=== PATIENT | male | born 1975 | race African-American/Black ===

== ENCOUNTER 2020-10-13 11:54 | Emergency (ER) | payer MEDICARE, MEDICAID, SELFPAY ==
--- NOTE | ~2020-10-13 | XR_ITS ---
EXAMINATION: XR CHEST CLINICAL INFORMATION: Shortness of breath. COMPARISON: 01/07/2020 chest radiograph. TECHNIQUE: Frontal view of the chest was obtained. FINDINGS: No significant abnormality is noted involving the heart, lungs, mediastinum, bony thorax or soft tissues. XR/XR chest 1V IMPRESSION: No acute cardiopulmonary process.
[2020-10-13 12:21] VITALS: BP 114/77; PULSE 63; RESP 18; TEMP 36.7; O2SAT 99; BMI 22.4
--- NOTE | 2020-10-13 12:50 | ECG_ITS ---
Test Reason : CHEST WALL PAIN Blood Pressure : / mmHG Vent. Rate : 054 BPM Atrial Rate : 054 BPM P-R Int : 122 ms QRS Dur : 098 ms QT Int : 428 ms P-R-T Axes : 010 054 040 degrees QTc Int : 405 ms Sinus bradycardia Incomplete right bundle branch block Borderline ECG When compared with ECG of 07-JAN-2020 12:16, No significant change was found Referred By: Candis Owen Electronically Signed By:OLIVERIO MARTINEZ
--- NOTE | 2020-10-13 12:59 | ED.ASTHMA ---
HPI - Asthma General Chief Complaint: Asthma Stated Complaint: DIFF BREATHING ASTHMA Time Seen by Provider: 10/13/20 12:49 Source: patient Mode of arrival: ambulatory History of Present Illness HPI Narrative: 45-year-old male a past medical history of asthma presenting to the ED complaining of SOB, chest tightness, productive cough x a couple days. Reports right-sided chest wall pain worse on palpation. Denies fever, chills, recent travel, [place] edema, history of blood clots, sick contacts, COVID-19 exposure. Denies having inhalers at home, denies having PCP MD complaint: asthma attack Related Data Previous Rx's Medication Instructions Recorded albuterol sulfate 2 puff INHALATION Q4-6H PRN #6.7 g 10/13/20 prednisone 40 mg PO DAILY 5 Days #10 tab 10/13/20 Allergies Allergy/AdvReac Type Severity Reaction Status Date / Time No Known Allergies Allergy Verified 10/13/20 12:25 Review of Systems Review of Systems: Constitutional: No Fever, No Chills, No Fatigue, No Malaise Cardiovascular: + Chest Pain, + SOB, No Dyspnea on Exertion, No Orthopnea, No Edema, No Palpitations Respiratory: + Cough, + Sputum, + Wheezing Gastrointestinal: No Nausea, No Vomiting, No Abdominal pain Musculoskeletal: No joint pain, No Myalgias Skin: No Skin Lesions, No rash Neuro: No Weakness, No Numbness, No Headache Yes all other systems are reviewed and are negative [facility] Past Medical History Attestation statement: The following information was validated with the patient. Medical History (Updated 10/13/20 @ 15:01 by BIMAL Hernandez) Asthma Social History Social History Advance Directives: No Advance Directives Information Provided: Yes Physical Exam Vital Signs: Vital Signs: Last Vital Signs Temp 98.0 F 10/13/20 14:28 Pulse 55 10/13/20 14:28 Resp 19 10/13/20 14:28 BP 115/73 10/13/20 14:28 Pulse Ox 99 10/13/20 14:28 Body Mass Index 22.4 Const: General: cooperative, healthy appearing and no acute distress Orientation/consciousness: patient oriented x3 Limitations: no limitations HENMT: Head: Yes normal to inspection Ears: hearing grossly normal bilaterally General nose exam: Normal external nose present Face and sinus: Yes normal facial exam Eyes: General: appearance normal, both eyes and all related structures EOM: EOMs intact bilaterally Neck: Neck: Yes normal visual inspection and Yes no meningeal signs Chest: Chest palpation & inspection: no crepitus and tenderness (right anterior chest wall) Resp: Effort & Inspection: normal respiratory effort Auscultation: wheezes expiratory wheezes and throughout Cardio: Rate: regular rate Heart sounds: S1 normal heart sound present and S2 normal heart sound present GI: Inspection: Yes normal to inspection Skin: Rashes: no rashes Wounds: no wounds Neuro: General: patient oriented x3 and no meningeal signs Extrem: General: Yes normal to inspection, Yes no pedal edema and Yes no calf tenderness Course Course Course Narrative: -no leukocytosis, troponin negative, labs otherwise unremarkable XR chest 1V IMPRESSION: No acute cardiopulmonary process. -D-dimer negative, COVID-19/influenza/RSV negative. On re-evaluation patient's lungs CTA, reports symptomatic improvement. Feels safe for discharge home MDM - Asthma MDM Narrative Medical decision making narrative: 45-year-old male a past medical history of asthma presenting to the ED complaining of SOB, chest tightness, productive cough x a couple days. On exam VSS, NAD, well appearing, physical exam as above, diffuse expiatory wheezing, right chest wall with reproducible tenderness. Concern for asthma exacerbation vs pneumonia vs PE. Rule out COVID-19. Plan: EKG, labs, CXR, COVID-19 testing, DuoNeb, Solu-Medrol, magnesium, reassess Lab Data Result diagrams: 10/13/20 13:14 10/13/20 13:14 Labs: Lab Results 10/13/20 10/13/20 10/13/20 Range/Units 13:14 13:14 13:14 WBC 9.2 (4.8-10.8) X10*3/uL RBC 4.86 (4.60-5.80) X10*6/uL Hgb 14.3 (14.0-18.0) g/dl Hct 42.7 (42-52) % MCV 87.9 (80-98) fL MCH 29.4 (27.0-33.0) pg MCHC 33.5 (31.0-36.0) g/dl RDW 14.8 (11.0-16.0) % Plt Count 250 (160-400) X10*3/uL MPV 9.7 (9.4-12.4) fL Immature Gran % (Auto) 0.4 (0.0-0.4) % Neut % (Auto) 60.4 (45-73) % Lymph % (Auto) 28.9 (20-40) % [place] % (Auto) 6.7 (2-11) % Eos % (Auto) 3.4 (0-4) % Baso % (Auto) 0.2 (0-2) % Lymph # (Auto) 2.7 (1.2-4.9) X10*3/uL [place] # (Auto) 0.6 (0.1-1.2) X10*3/uL Eos # (Auto) 0.3 (0.0-0.4) X10*3/uL Baso # (Auto) 0.0 (0.0-0.2) X10*3/uL Abs Immat Gran (auto) 0.04 H (0.00-0.03) X10*3/uL Absolute Neuts (auto) 5.6 (2.0-8.3) X10*3/uL Absolute Nucleated RBC 0.000 (0.0-0.012) X10*3/uL Nucleated RBC % (auto) 0.0 (0.0-0.2) /100WBC D-Dimer NG/ML Sodium 139 (135-145) mmol/L Potassium 4.3 (3.3-5.1) mmol/L Chloride 108 (96-108) mmol/L Carbon Dioxide 23 (22-29) mmol/L Anion Gap 12 (12-20) BUN 11 (9-16) mg/dL Creatinine 1.06 (0.5-1.4) mg/dL Estim Creat Clear Calc 94.1 Estimated GFR > 60 Random Glucose 92 (60-115) mg/dL Calcium 9.4 (8.4-10.2) mg/dL Troponin I High Sens < 3.5 (<3.5-35.0) ng/L Coronavirus (PCR) (Negative) Influenza Type A (PCR) (Negative) Influenza Type B (PCR) (Negative) RSV RNA Qual (PCR) (Negative) 10/13/20 10/13/20 Range/Units 13:17 13:53 WBC (4.8-10.8) X10*3/uL RBC (4.60-5.80) X10*6/uL Hgb (14.0-18.0) g/dl Hct (42-52) % MCV (80-98) fL MCH (27.0-33.0) pg MCHC (31.0-36.0) g/dl RDW (11.0-16.0) % Plt Count (160-400) X10*3/uL MPV (9.4-12.4) fL Immature Gran % (Auto) (0.0-0.4) % Neut % (Auto) (45-73) % Lymph % (Auto) (20-40) % [place] % (Auto) (2-11) % Eos % (Auto) (0-4) % Baso % (Auto) (0-2) % Lymph # (Auto) (1.2-4.9) X10*3/uL [place] # (Auto) (0.1-1.2) X10*3/uL Eos # (Auto) (0.0-0.4) X10*3/uL Baso # (Auto) (0.0-0.2) X10*3/uL Abs Immat Gran (auto) (0.00-0.03) X10*3/uL Absolute Neuts (auto) (2.0-8.3) X10*3/uL Absolute Nucleated RBC (0.0-0.012) X10*3/uL Nucleated RBC % (auto) (0.0-0.2) /100WBC D-Dimer < 200 NG/ML Sodium (135-145) mmol/L Potassium (3.3-5.1) mmol/L Chloride (96-108) mmol/L Carbon Dioxide (22-29) mmol/L Anion Gap (12-20) BUN (9-16) mg/dL Creatinine (0.5-1.4) mg/dL Estim Creat Clear Calc Estimated GFR Random Glucose (60-115) mg/dL Calcium (8.4-10.2) mg/dL Troponin I High Sens (<3.5-35.0) ng/L Coronavirus (PCR) NEGATIVE (Negative) Influenza Type A (PCR) NEGATIVE (Negative) Influenza Type B (PCR) NEGATIVE (Negative) RSV RNA Qual (PCR) NEGATIVE (Negative) Discharge Plan Discharge Clinical Impression: Asthma with acute exacerbation Patient Disposition: Home, Self-Care Instructions: Asthma (ED) Additional Instructions: Your blood work and chest x-ray were reassuring today in the ED You were negative for COVID-19, the flu, and RSV Your are having an asthma exacerbation, use albuterol inhaler at home, in addition prednisone as a steroid, take as prescribed You need to establish care with a primary care doctor If her symptoms persist or worsen have constant worsening shortness breath, chest pain, fever, or chills please return to the ED Prescriptions: New albuterol sulfate 90 mcg/actuation HFA aerosol inhaler 2 puff inhalation Q4-6H PRN (Reason: shortness of breath or wheezing) Qty: 6.7 RF: 1 prednisone 20 mg tablet 40 mg PO DAILY 5 Days Qty: 10 RF: 0 Referrals: Fernandez Wolf DO [] - 2 days Shirley Vega MD [Physician] - 2 days Zen Winn MD [Physician] - 2 days Physician,None [Primary Care Provider] - 2 days
[2020-10-13 13:18] VITALS: PULSE 55; O2SAT 99
[2020-10-13] MEDS: Albuterol/Iprat 2.5/0.5MG 3 ML AMPUL.NEB INHALE (13:18)
[2020-10-13 13:22] LABS: Basophils Percent Auto 0.2 % (0-2); Eosinophils Absolute Auto 0.3 X10*3/uL (0.0-0.4); Eosinophils Percent Auto 3.4 % (0-4); Hematocrit 42.7 % (42-52); Hemoglobin 14.3 g/dl (14.0-18.0); Imm Gran Abs Auto 0.04 X10*3/uL (0.00-0.03); Imm Gran Pct Auto 0.4 % (0.0-0.4); Lymphocytes Absolute Auto 2.7 X10*3/uL (1.2-4.9); Lymphocytes Percent Auto 28.9 % (20-40); MANUAL DIFF FLAG NO; Mean Corpuscular HGB Conc 33.5 g/dl (31.0-36.0); Mean Corpuscular Hemoglobin 29.4 pg (27.0-33.0); Mean Corpuscular Volume 87.9 fL (80-98); Mean Platelet Volume 9.7 fL (9.4-12.4); Monocytes Absolute Auto 0.6 X10*3/uL (0.1-1.2); Monocytes Percent Auto 6.7 % (2-11); Neutrophils Absolute Auto 5.6 X10*3/uL (2.0-8.3); Neutrophils Percent Auto 60.4 % (45-73); Platelet Count 250 X10*3/uL (160-400); Red Blood Count 4.86 X10*6/uL (4.60-5.80); Red Cell Distribution Width 14.8 % (11.0-16.0); White Blood Count 9.2 X10*3/uL (4.8-10.8)
[2020-10-13] MEDS: Magnesium Sulfate/H2O 2 GM/50 ML PIGGYBACK IV (13:26)
[2020-10-13] MEDS: methylPREDNISolone Sod Succ 125 MG/2 ML VIAL IVPUSH (13:26)
[2020-10-13 13:44] LABS: Anion Gap 12 (12-20); Blood Urea Nitrogen 11 mg/dL (9-16); Calcium 9.4 mg/dL (8.4-10.2); Carbon Dioxide 23 mmol/L (22-29); Chloride 108 mmol/L (96-108); Creatinine Clr Calc Pharmacy 94.1; Estimated Glomerular Filt Rate > 60; Glucose Random 92 mg/dL (60-115); Potassium 4.3 mmol/L (3.3-5.1); Sodium 139 mmol/L (135-145)
[2020-10-13 13:50] LABS: Troponin-I High Sensitivity < 3.5 ng/L (<3.5-35.0)
[2020-10-13 14:07] LABS: D Dimer < 200 NG/ML
[2020-10-13 14:22] LABS: Influenza A PCR NEGATIVE (Negative); Influenza B PCR NEGATIVE (Negative); Resp Syncy Virus RNA Qual PCR NEGATIVE (Negative); SARS COV2 PCR INHOUSE NEGATIVE (Negative)
[2020-10-13 14:28] VITALS: BP 115/73; PULSE 55; RESP 19; TEMP 36.7; O2SAT 99
== END 2020-10-13 15:11 | disposition home or self-care (01) ==
PROVIDERS: Physician Assistant; Emergency Provider Emergency Medicine Emergency Medical Services
DX: J45.901 Unspecified asthma with (acute) exacerbation (principal); R07.89 Other chest pain; Z20.822 Contact with and (suspected) exposure to COVID-19; Z79.899 Other long term (current) drug therapy
CPT/HCPCS: 0241U; 36415; 71045; 80048; 84484; 85025; 85379; 93005; 94640; 96365; 96374; 99284; J2930; J3475

== ENCOUNTER 2021-05-07 11:46 | Emergency (ER) | payer MEDICARE, MEDICAID, SELFPAY ==
[2021-05-07 12:36] VITALS: BP 106/68; PULSE 75; RESP 18; TEMP 36.8; O2SAT 97; BMI 23.7
[2021-05-07 13:01] LABS: COVID-19 Test Positive (Negative)
--- NOTE | 2021-05-07 14:33 | ED.URI ---
HPI - URI/Sore Throat General Chief Complaint: Upper Respiratory Symptoms Stated Complaint: Upper back pain/Fever Time Seen by Provider: 05/07/21 14:30 Source: patient Mode of arrival: ambulatory Limitations: no limitations History of Present Illness HPI Narrative: jonel x 2 exposed to friend with JULIANO JHAVERI elicited complaint: cough Pertinent past history: other (bronchitis) Onset (ago): day(s) (2) Consistency: constant Severity: mild Able to tolerate fluids by mouth: Yes Exacerbating factors: nothing Relieving factors: nothing Context: sick contacts Associated symptoms: chills, myalgias, headache, nasal congestion and cough Treatments prior to arrival: none Related Data Previous Rx's Medication Instructions Recorded albuterol sulfate 90 mcg/actuation 2 puff INHALATION Q4-6H PRN #6.7 g 10/13/20 aerosol inhaler prednisone 20 mg tablet 40 mg PO DAILY 5 Days #10 tab 10/13/20 prednisone 20 mg tablet 40 mg PO DAILY 5 Days #10 tab 05/07/21 Allergies Allergy/AdvReac Type Severity Reaction Status Date / Time No Known Allergies Allergy Verified 10/13/20 12:25 Review of Systems Review of Systems: Constitutional : no Fever, positive Chills, positive fatigue, positive Malaise ENT/Mouth : nosore throat, positive runny nose Eyes: No Discharge Cardiovascular : No Chest Pain, No SOB Respiratory : No Cough, No Sputum Gastrointestinal : No Nausea, No Vomiting, No Diarrhea Genitourinary : No Dysuria, No Urinary Frequency Musculoskeletal : positive Myalgia Skin : No rash Neuro : pos Headache PMFSH Past Medical History Attestation statement: The following information was validated with the patient. Medical History Asthma Social History Social History (Updated 05/07/21 @ 14:46 by Danna Christianson DO) Patient Tobacco Use Status: Current everyday Tobacco user Advance Directives: No Advance Directives Information Provided: Yes Physical Exam Vital Signs: Vital Signs: Last Vital Signs Temp 98.2 F 05/07/21 12:36 Pulse 75 05/07/21 12:36 Resp 18 05/07/21 12:36 BP 106/68 05/07/21 12:36 Pulse Ox 97 05/07/21 12:36 BMI result Body Mass Index 23.7 Appearance: Alert. Oriented X3. No acute distress. Eyes: Pupils equal, round and reactive to light. ENT: Pharynx normal. Neck: Normal inspection. Neck supple. CVS: Normal heart rate and rhythm. Pulses normal. Respiratory: No respiratory distress. Breath sounds normal. Abdomen: Soft and nontender. Skin: Skin warm and dry. Normal skin color. Normal skin turgor. Extremities: No lower extremity edema. No calf ttp Neuro: Oriented X 3. No motor deficit. No sensory deficit. MDM - URI/Sore Throat MDM Narrative Medical decision making narrative: 45 yo male with hx of bronchitis he is a smoker had two moderna vaccines comes in with c/o body aches and viral symptoms - normal O2 clear lungs but has required steroids in the past. At this time + for COVID given precautions to go home with. prednisone has required it in past with URIs, has rescue inhaler at home Lab Data Labs: Lab Results 05/07/21 Range/Units 12:35 COVID-19 (GILBERTO) Positive A (Negative) COVID-19 Clin Com See Note Discharge Plan Discharge Clinical Impression: COVID-19 Patient Disposition: Home, Self-Care Instructions: COVID-19 (Coronavirus Disease 2019) (ED) Additional Instructions: return to ED for any worsening symptoms or concerns wear a mask, quarantine protect others if you are so short of breath you cannot walk to your bathroom that is not normal seek medical care Prescriptions: New prednisone 20 mg tablet 40 mg PO DAILY 5 Days Qty: 10 RF: 0 No Action albuterol sulfate 90 mcg/actuation HFA aerosol inhaler 2 puff inhalation Q4-6H PRN (Reason: shortness of breath or wheezing) Qty: 6.7 RF: 1 prednisone 20 mg tablet 40 mg PO DAILY 5 Days Qty: 10 RF: 0 Stand Alone Forms: Work/School Release
== END 2021-05-07 15:03 | disposition home or self-care (01) ==
PROVIDERS: Emergency Provider Emergency Medicine
DX: U07.1 COVID-19 (principal)
CPT/HCPCS: 36415; 87635; 99283

== ENCOUNTER 2022-02-23 13:48 | Emergency (ER) | payer MEDICARE, MEDICAID, SELFPAY ==
[2022-02-23 13:51] VITALS: BP 134/96; PULSE 99; RESP 18; TEMP 36.1; O2SAT 98; BMI 28.5
--- NOTE | 2022-02-23 16:44 | ED_ITS ---
HPI - Extremity Problem General Chief complaint: Extremity Problem Stated complaint: R hand pain Time Seen by Provider: 02/23/22 15:25 Source: patient Mode of arrival: ambulatory Limitations: no limitations History of Present Illness HPI Narrative: patient presents emergency department for evaluation of wrist pain. Onset was approximately 3 or 4 days ago. Denies any obvious injury, he states he was at work [employer] at the time when his pain began. 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 denies any fall. Denies numbness or tingling. Pain at times radiates up to his elbow. Has full range of motion to elbow and hand. He is able to flex and extend his wrist but it is painful to do so. Related Data Previous Rx's Medication Instructions Recorded albuterol sulfate 90 mcg/actuation 2 puff inhalation Q4-6H PRN 10/13/20 aerosol inhaler shortness of breath or wheezing #6.7 grams prednisone 20 mg tablet 40 mg PO DAILY 5 days #10 tabs 10/13/20 prednisone 20 mg tablet 40 mg PO DAILY 5 days #10 tabs 05/07/21 Allergies Allergy/AdvReac Type Severity Reaction Status Date / Time No Known Allergies Allergy Verified 10/13/20 12:25 Review of Systems Review of Systems: musculoskeletal: positive wrist pain Yes all other systems are reviewed and are negative PMFSH Past Medical History Attestation statement: The following information was validated with the patient. Source: old records reviewed Medical History Asthma Social History Social History Patient Tobacco Use Status: Current everyday Tobacco user Advance Directives: No Advance Directives Information Provided: Yes Physical Exam Vital Signs: Vital Signs: Last Vital Signs Temp 97 F 02/23/22 13:51 Pulse 99 02/23/22 13:51 Resp 18 02/23/22 13:51 BP 134/96 H 02/23/22 13:51 Pulse Ox 98 02/23/22 13:51 O2 Del Method 02/23/22 13:51 BMI result Body Mass Index 28.5 Appearance: Alert.?Oriented to person, place and time. No acute distress.?Normal affect. Eyes: Pupils equal, round and reactive to light.? ENT: Pharynx normal.?? Neck: Normal inspection.? Neck supple.?? CVS: Heart sounds normal. Normal heart rate and rhythm.? Pulses normal.?? Respiratory: No respiratory distress.? Lung sounds clear to auscultation bilaterally?? Abdomen: Soft and non-tender. Normoactive bowel sounds. Skin: Skin warm and dry.? Normal skin color.? Extremities: No lower extremity edema.? right wrist with very mild localized swelling, Point tenderness over the dorsal wrist without any obvious deformity. Full AROM to the right elbow wrist and hand. 2+ radial pulse bilaterally. Neuro: Moves all extremities spontaneously. Sensation intact bilaterally. Ambulates with normal steady gait. Course Course Course Narrative: patient is a 46-year-old male presenting to emergency department for evaluation of right wrist pain. 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 Denies any numbness or tingling. Extremities neurovascularly intact distally. X-ray obtained reveals no acute fracture dislocation, not consistent with septic arthritis. Symptoms appear most consistent with a sprain of the wrist, given localized swelling and point tenderness. Discussed plan of care for discharge home, naproxen twice daily for pain, wrist splint, outpatient follow- up with primary care provider. Reviewed worsens and symptoms return back to the emergency department for. All questions were answered. Patient discharged Home in stable condition MDM - Extremity (Nontraumatic) Medical Records Attestation: I reviewed the patient's medical records. Imaging Data wrist XR: Radiologist's impression: XR/XR hand wrist RT IMPRESSION: Normal radiograph. Discharge Plan Discharge Clinical Impression: Sprain of right wrist Patient Disposition: Home, Self-Care Instructions: Wrist Sprain (ED) Additional Instructions: As discussed, the x-ray today does not show any fracture dislocation. Use the wrist splint until symptoms improved. Apply ice for 10-15 minutes 3-4 times daily. Take naproxen twice daily as needed for pain, do not take occasional [id number] medications such as ibuprofen, Motrin, Advil, Aleve, or aspirin while taking this. You can take Tylenol 500 mg, 2 tablets (1,000mg) every 4-6 hours as needed for pain, but not to exceed 3 doses daily (3,000mg). Follow-up with your primary care provider within 1 week. Return to the emergency department any new or worsening? symptoms or concerns Prescriptions: No Action albuterol sulfate 90 mcg/actuation HFA aerosol inhaler 2 puff inhalation Q4-6H PRN (Reason: shortness of breath or wheezing) Qty: 6.7 1RF prednisone 20 mg tablet 40 mg PO DAILY 5 Days Qty: 10 0RF prednisone 20 mg tablet 40 mg PO DAILY 5 Days Qty: 10 0RF Interventions: ED Discharge Assessment Last Done: 02/23/22 17:09 Discharge Date/Time: 02/23/22 17:09
== END 2022-02-23 17:09 | disposition home or self-care (01) ==
PROVIDERS: Emergency Provider Emergency Medicine
DX: S63.501A Unspecified sprain of right wrist, initial encounter (principal); M25.531 Pain in right wrist; Y33.XXXA Other specified events, undetermined intent, initial encounter; Y93.9 Activity, unspecified; Y92.009 Unspecified place in unspecified non-institutional (private) residence as the place of occurrence of the external cause; Y99.0 Civilian activity done for income or pay
CPT/HCPCS: 29125; 73110; 73130; 99284

== ENCOUNTER 2022-05-15 11:17 | Outpatient (REF) | payer MEDICARE, MEDICAID, SELFPAY ==
[2022-05-15 11:42] LABS: COVID-19 Test Positive (Negative); IDNOW Serial# 16C4AD1C
== END 2022-05-15 11:18 | disposition home or self-care (01) ==
LOC: HO.LAB 11:17
PROVIDERS: Visit Provider Internal Medicine
DX: Z20.822 Contact with and (suspected) exposure to COVID-19 (principal)
CPT/HCPCS: 87635; C9803

== ENCOUNTER 2024-12-12 09:28 | Emergency (ER) | payer MEDICARE, MEDICAID, SELFPAY ==
--- NOTE | ~2024-12-12 | XR_ITS ---
EXAMINATION: XR LUMBOSACRAL SPINE CLINICAL INFORMATION: R low back pain s/p bending over COMPARISON: None available. TECHNIQUE: Three views of the lumbosacral spine. FINDINGS: There are 5 nonrib-bearing lumbar segments. There is a degrees convex left curvature of the lumbar spine. T11/12 demonstrates mild disc space narrowing and anterior aspects. L3-4 demonstrates mild disc space narrowing with anterior osteophytes. L4-5 injury subtle disc space narrowing with anterior osteophytes. Other levels are unremarkable. XR/XR lumbar spine 2-3V IMPRESSION: Mild degenerative disc disease at T11-12, L3-4, L4-5. Electronically signed by: Wander Salinas MD 12/12/2024 11:12 AM EDT
[2024-12-12 09:44] VITALS: BP 129/79; PULSE 70; RESP 18; TEMP 36.6; O2SAT 99; BMI 25.8
--- NOTE | 2024-12-12 11:00 | ED_ITS ---
HPI - Back Pain/Injury General Chief Complaint: Back Pain/Injury Stated Complaint: lower back popped out having back pain Time Seen by Provider: 12/12/24 10:48 Source: patient Mode of arrival: ambulatory Limitations: no limitations History of Present Illness ED Provider: HITESH SANCHEZ PA-C HPI Narrative: 49 year old male with pmhx significant for sciatica presents to the ED today for evaluation of right lower back pain x3 days. Patient states that three days ago he bent over to strip picker something heavy when he felt a pain to his right lower back. Admits to constant pain since this time with radiation down his right buttock/ thigh. Pain does not extend to his foot. Denies any blunt trauma. Denies history of IV drug use. Denies fever, chills, dysuria, hematuria. Denies numbness/tingling/weakness of the right lower extremity. Denies saddle anesthesia, bowel or bladder incontinence or retention. Related Data Previous Rx's ?Medication ?Instructions ?Recorded albuterol sulfate 90 mcg/actuation 2 puff inhalation Q 4-6H PRN 10/13/20 aerosol inhaler shortness of breath or wheez ing #6.7 grams prednisone 20 mg tablet 40 mg (2 x 20 mg) PO DAILY 5 days 10/13/20 #10 tabs prednisone 20 mg tablet 40 mg (2 x 20 mg) PO DAILY 5 days 05/07/21 #10 tabs cyclobenzaprine 5 mg tablet 5 mg PO Q8H PRN muscle spa sm 3 12/12/24 days #9 tabs lidocaine 5 % topical patch 1 patch topical DAILY #15 ea 12/12/24 (Lidoderm) Allergies Allergy/AdvReac Type Severity Reaction Status Date / Time No Known Allergies Allergy Verified 12/12/24 09:46 Review of Systems Review of Systems: Constitutional: No fever, chills, fatigue, night sweats, weight changes ENT/Mouth: No ear pain, hearing loss, nasal congestion, sinus pain, rhinorrhea, sore throat Eyes: No eye pain, swelling, redness, vision changes, discharge Cardio: No chest pain, palpitations, [place], orthopnea, peripheral edema Pulm: No SOB, cough, sputum, wheezing, dyspnea, hemoptysis GI: No nausea, vomiting, hematemesis, abdominal pain, diarrhea, constipation, hematochezia, melena : No irregular bleeding, dysuria, frequency, urgency, hesitancy, hematuria, flank pain, urinary flow changes, urinary incontinence or retention MSK: +back pain, No neck pain, joint pain, myalgias Skin: No lesions, rashes Neuro: No weakness, numbness, paresthesias, LOC, dizziness, headache All other systems reviewed and are negative. [facility] Past Medical History Attestation statement: The following information was validated with the patient. Source: old records reviewed and nursing notes reviewed Medical History Asthma Social History Social History Alcohol intake: current Alcohol type: beer Patient Tobacco Use Status: Current everyday Tobacco user Substance Use Type: Marijuana Physical Exam Vital Signs: Vital Signs: Last Vital Signs Temp 97.8 F 12/12/24 12:58 Pulse 56 12/12/24 12:58 Resp 15 12/12/24 12:58 BP 123/79 12/12/24 12:58 Pulse Ox 100 12/12/24 12:58 O2 Del Method Room Air 12/12/24 12:58 BMI result Body Mass Index 25.8 Vital signs stable, afebrile Const: General: cooperative, healthy appearing, comfortable, no acute distress, alert, awake and Physically active Orientation/consciousness: patient oriented x3 HEENT: Head: Yes normal to inspection, Yes normocephalic and Yes atraumatic Eyes: General: appearance normal, both eyes and all related structures Pupils: Equal, round and reactive pupils present EOM: EOMs intact bilaterally Neck: Other: + no cervical midline spinous tenderness or step-off deformity. Neck: Yes normal visual inspection, Yes full ROM and Yes no meningeal signs Resp: Effort & Inspection: normal respiratory effort Auscultation: clear to auscultation bilaterally Cardio: Rate: regular rate Rhythm: regular rhythm GI: Inspection: Yes normal to inspection Palpation (GI): Soft to palpation and nontender : General: Yes no CVA tenderness Back/Spine/Pelvis: Other: + straight leg raise w/ L leg. No midlin e spinous tenderness. No paraspinal muscle tenderness. No step off deformity. Back: no CVA tenderness Neuro: Other: Strength 5/5 intact throughout.? No saddle anesthesia.? Sensation intact to light touch.? Neurovascular intact distally.? General: patient oriented x3, gait normal and no meningeal signs Cranial nerves: Yes Equal, round and reactive pupils present Gait exam (Neuro): Normal gait present Course Course Course Narrative: xr lumbar spine unremarkable. treated w/ toradlol and lido patch in ED w/ improvement in pain. ?msk strain v sciatica. will send flexeril + lido patches to pharmacy for treatment. Patient has remained stable throughout ED visit today. Discussed worrisome signs and symptoms and when to return to the ED. All questions answered at this time. Patient is agreeable with disposition and stable for discharge. Medications Administered Discontinued Medications Generic Name Dose Route Start Last Admin Trade Name Freq PRN Reason Stop Dose Admin Ketorolac Tromethamine 30 mg 12/12/24 11:42 12/12/24 11:53 Ketorolac Tromethamine 30 Mg/Ml Vial IM 12/12/24 11:43 30 mg ONCE ONE Administration Lidocaine 1 patch 12/12/24 11:42 12/12/24 11:53 Lidocaine 4 % Patch Adh..Patch TRANSDERMA 12/12/24 11:43 1 patch ONCE ONE Administration Protocol Medical Decision Making Medical Decision Making [facility] Narrative: 49 year old male with pmhx significant for sciatica presents to the ED today for evaluation of right lower back pain x3 days. vital signs stable, afebrile. he is well appearing and in NAD. no back pain red flags. exam reveals positive straight leg raise w/ L leg. otherwise unremarkable. Concern for MSK sprain/strain, fracture, subluxation, disc herniation, sciatica. Unlikely cord compression, cauda equina, Guillain-[place], epidural abscess. Plan for imaging and pain control. Differential Diagnosis Differential Diagnoses: The differential diagnosis associated with the presentation includes as above Admission/Observation Not indicated. Lab Data [facility] Lab Attestation statement: I reviewed the patient's lab results. as above. Labs: Lab Results 12/12/24 Range/Units 12:00 Urine Color Yellow Urine Appearance Clear Urine pH 5.5 (5.0-9.0) Ur Specific [place] 1.015 (1.005-1.025) Urine Protein Negative (Neg-Trace) mg/dL Urine Glucose (UA) Negative (Negative) mg/dL Urine Ketones Negative (Negative) mg/dL Urine Blood Negative (Negative) Urine Nitrite Negative (Negative) Ur Leukocyte Esterase Negative (Negative) Independent Interpretation I performed an independent interpretation of an: Plain X-Ray Interpretation: xr lumbar spine without fracture Radiology Impression Discussion of test interpretation with radiology: I have reviewed the radiologist's reading. Radiologist Impression: Date of Service: 12/12/24 Procedure(s): XR lumbar spine 2-3V Accession Number(s): [id number] cc: Physician,Unknown ; Hitesh Sanchez~ EXAMINATION: XR LUMBOSACRAL SPINE CLINICAL INFORMATION: R low back pain s/p bending over COMPARISON: None available. TECHNIQUE: Three views of the lumbosacral spine. FINDINGS: There are 5 nonrib-bearing lumbar segments. There is a degrees convex left curvature of the lumbar spine. T11/12 demonstrates mild disc space narrowing and anterior aspects. L3-4 demonstrates mild disc space narrowing with anterior osteophytes. L4-5 injury subtle disc space narrowing with anterior osteophytes. Other levels are unremarkable. XR/XR lumbar spine 2-3V IMPRESSION: Mild degenerative disc disease at T11-12, L3-4, L4-5. Electronically signed by: Wander Salinas MD 12/12/2024 11:12 AM EDT External Record Review External record reviewed: Inpatient record Prescription Management I considered prescription management with: Pain Medication and Other (Muscle relaxer) Social Determinants Patient?s care significantly limited by Social Determinants of Health including: Other Social Determinant of Health Critical Care Time Critical Care Time Critical Care Time: No Discharge Plan Discharge Clinical Impression: Right lumbar radiculopathy Patient Disposition: Home, Self-Care Instructions: Lumbar Radiculopathy (ED), Back Pain (ED) Additional Instructions: You were evaluated in the Emergency Department today for your back pain.? Your evaluation did not show signs of medical conditions requiring emergent intervention at this time. Avoid bending, lifting, or twisting. Use ice several times per day for 20 minutes at a time for the next 48 hours and then change to heat. I recommend you take 600mg ibuprofen every 6 hours or tylenol 650mg every 6 hours as needed for pain. If needed, you can alternate these medications so that you take one medication every 3 hours. For example, at noon take ibuprofen, then at 3pm take tylenol, then at 6pm take ibuprofen. Flexeril is a muscle relaxer. Take this at night as it makes you drowsy. Do not drive, drink alcohol, or operate machinery while taking it. Lidoderm patches are numbing patches. Apply to painful areas. Please schedule an appointment for follow-up with your primary care provider this week for further evaluation of your symptoms. Return to the Emergency Department if you experience worsening back pain, difficulty walking, fevers, numbness, tingling, incontinence, or any other concerning symptoms. In the case of an emergency call 911. Prescriptions: New cyclobenzaprine 5 mg tablet 5 mg PO Q8H PRN (Reason: muscle spasm) 3 Days Qty: 9 0RF lidocaine [Lidoderm] 5 % adhesive patch,medicated 1 patch topical DAILY Qty: 15 0RF Rx Instructions: leave on most painful area for up to 12 hrs No Action albuterol sulfate 90 mcg/actuation HFA aerosol inhaler 2 puff inhalation Q4-6H PRN (Reason: shortness of breath or wheezing) Qty: 6.7 1RF prednisone 20 mg tablet 40 mg PO DAILY 5 Days Qty: 10 0RF prednisone 20 mg tablet 40 mg PO DAILY 5 Days Qty: 10 0RF Referrals: Physician,Unknown J [Primary Care Provider, Medical] Stand Alone Forms: Work/School Release Interventions: ED Discharge Assessment Last Done: 12/12/24 12:58 Discharge Date/Time: 12/12/24 12:58 Print Language: Armenian
[2024-12-12 11:14] VITALS: BP 123/79; PULSE 56; RESP 15; TEMP 36.6; O2SAT 100
[2024-12-12] MEDS: Lidocaine 4 % Patch ADH..PATCH 1 PATCH TRANSDERMA (11:53)
--- OUTSIDE RECORDS SUMMARY | 2024-12-12 12:02 | XMS_ITS | Clinical Summary ---
Author Organization [address] Address [address] [place] [address] [place] [id number] Phone Care Team Providers Care Senior Executive Compensation Analyst Name Role Phone Calin Krause MD Primary Care Provider [phone] Allergies No known active allergies Medications cyclobenzaprine (FLEXERIL) 10 mg tablet Take 1 tablet (10 mg total) by mouth at bedtime as needed. 04/22/2023 Active albuterol HFA (PROAIR HFA ; PROVENTIL HFA ; VENTOLIN HFA) 90 mcg/actuation inhaler Inhale 2 Puffs into the lungs 4 times daily as needed for Cough or Wheezing. Active acetaminophen (TYLENOL 8 HOUR) 650 mg 8 hr tablet Take 1 tablet (650 mg total) by mouth every 8 (eight) hours if needed. 04/22/2023 Active Active Problems Problem Noted Date Diagnosed Date Ulcers of both great toes ([facility] V24, [facility] V28) 07/22/2023 Immunizations Name Administration Dates Next Due Moderna SARS-CoV-2 COVID-19, mRNA, LNP-S, preservative free 01/24/2021,12/27/2020 Td Tetanus diptheria (Tdvax) 7yo and older 11/18 Surgical History Surgery Date Site/Laterality Comments KNEE SURGERY Right PROCEDURE: HISTORICAL KNEE SURGERY; COMMENT: in 2016 by Stephane gay Medical History Medical History Date Comments Asthma DX:Asthma Family History Medical History Relation Name Comments Asthma Mother Emphysema, smok er Relation Name Status Comments Father Mother Alive Social History Tobacco Use Types Packs/Day Years Used Date Smoking Tobacco: Every Day Cigarettes Smokeless Tobacco: Never Alcohol Use Standard Drinks/Week Comments Yes 0 (1 standard drink = 0.6 oz pur e alcohol) Sex and Gender Information Value Date Recorded Sex Assigned at Not on file Legal Sex Male 5:17 AM EST Gender Identity Not on file Sexual Orientation Not on file Obstetrics History Last Filed Vital Signs Vital Sign Reading Time Taken Comments Blood Pressure 107/71 07/22/2023 3:32 PM EST Sit ting L Arm Pulse 93 07/22/2023 3:32 PM EST Temperature - - Respiratory Rate - - Oxygen Saturation - - Inhaled Oxygen Concentration - - Weight 91.6 kg (202 lb) 07/22/2023 3:32 PM EST Height 182.9 cm (6') 07/22/2023 3:32 PM EST Body Mass Index 27.4 07/22/2023 3:32 PM EST Plan of Treatment Upcoming Encounters Date Type Department Care Team (Late st Contact Info) Description 12/12/2024 3:30 PM EDT Office Visit Adult Medicine [address] [phone] Bhakti Aguilar PA [address] [place] [id number] Health Maintenance Due Date Last Done Comments Hepatitis B Vaccines (1 of 3 - 19+ 3-dose series) 1995 Pneumococcal Vaccine: Pediatrics (0 to 5 Years) and At-Risk Patients (6 to 49 Years) (1 of 2 - PCV) 1995 Cholesterol Screening (Lipid Panel) 04/27/2022 Colorectal Cancer Screening: Colonoscopy 04/27/2022 HIV Screening 04/27/2022 Hepatitis C Screening 04/27/2022 Social Influencers of Health Screening 04/27/2022 DTaP,Tdap,and Td Vaccines (2 - Td or Tdap) 11/18/2022 11/18/2012 COVID-19 Vaccine (3 - 2023-2 5 season) 2024 01/24/2021, 12/27/2020 Depression Screening 05/18/2024 Influenza Vaccine (#1) 2025 HIB Vaccines Aged Out No longer eligi ble based on patient's age to complete this topic HPV Vaccines Aged Out No longer eligi ble based on patient's age to complete this topic Hepatitis A Vaccines Aged Out No long er eligible based on patient's age to complete this topic IPV Vaccines Aged Out No longer eligi ble based on patient's age to complete this topic MMR Vaccines Aged Out No longer eligi ble based on patient's age to complete this topic Meningococcal ACWY Vaccine Aged Out N o longer eligible based on patient's age to complete this topic Meningococcal B Vaccine Aged Out No l onger eligible based on patient's age to complete this topic RSV Immunization Patients Under 20 months Aged Out No longer eligible b ased on patient's age to complete this topic Varicella Vaccines Aged Out No longer eligible based on patient's age to complete this topic Care Teams Senior Executive Compensation Analyst Relationship Specialty Start Date End Date Calin Krause MD [address] [place] [address] PCP - General Internal Medicine 10/23/21
[2024-12-12 12:11] LABS: Appearance Urine Clear; Glucose Urine UA Negative (Negative); PH 5.5 (5.0-9.0); Specific Gravity - Urine 1.015 (1.005-1.025)
[2024-12-12 12:58] VITALS: BP 123/79; PULSE 56; RESP 15; TEMP 36.6; O2SAT 100
== END 2024-12-12 12:58 | disposition home or self-care (01) ==
PROVIDERS: Physician Assistant Medical; Emergency Provider Emergency Medicine
DX: M54.16 Radiculopathy, lumbar region (principal); M54.50 Low back pain, unspecified; F17.210 Nicotine dependence, cigarettes, uncomplicated
CPT/HCPCS: 72100; 81003; 96372; 99284; J1885

== ENCOUNTER → 2024-12-12 10:48 | Outpatient (BNV) | payer MEDICARE, MEDICAID, SELFPAY | PROVIDERS: Emergency Provider Emergency Medicine; Visit Provider Radiology Diagnostic Radiology | DX: M51.35 Other intervertebral disc degeneration, thoracolumbar region (principal) | CPT/HCPCS: 72100 ==

== ENCOUNTER 2024-12-21 17:40 | Emergency (ER) | payer OTHER, MEDICAID, SELFPAY ==
[2024-12-21 17:43] VITALS: BP 123/73; PULSE 85; RESP 18; TEMP 36.6; O2SAT 98; BMI 24.4
--- NOTE | 2024-12-21 17:43 | ED_ITS ---
HPI - Back Pain/Injury General Chief Complaint: Back Pain/Injury Stated Complaint: lower back still hurts, radiating to legs Time Seen by Provider: 12/21/24 19:52 Source: patient and family (Significant other at bedside corroborating history) Mode of arrival: ambulatory Limitations: no limitations History of Present Illness ED Provider: Kannan Saldaña PA-C HPI Narrative: 49-year-old male without significant medical history presents to the ED for ongoing right side lumbar back pain radiating down right posterior mid thigh. Patient seen a week and a half ago for same symptoms, states pain has been steady, has not improved. Denies any recent fall/injury/trauma. Patient states he called his primary care doctor today to be seen, however office stated he should come to the ED for evaluation. Denies chest pain, shortness of breath, abdominal pain, urinary symptoms, black/tarry stool, bowel/bladder incontinence, saddle paresthesias. Related Data Previous Rx's ?Medication ?Instructions ?Recorded albuterol sulfate 90 mcg/actuation 2 puff inhalation Q 4-6H PRN 10/13/20 aerosol inhaler shortness of breath or wheez ing #6.7 grams prednisone 20 mg tablet 40 mg (2 x 20 mg) PO DAILY 5 days 10/13/20 #10 tabs prednisone 20 mg tablet 40 mg (2 x 20 mg) PO DAILY 5 days 05/07/21 #10 tabs cyclobenzaprine 5 mg tablet 5 mg PO Q8H PRN muscle spa sm 3 12/12/24 days #9 tabs lidocaine 5 % topical patch 1 patch topical DAILY #15 ea 12/12/24 (Lidoderm) cyclobenzaprine 5 mg tablet 5 mg PO TID #15 tabs 12/21 prednisone 10 mg tablet 10 mg PO DIRECTED #42 tab s 12/21/24 Allergies Allergy/AdvReac Type Severity Reaction Status Date / Time No Known Allergies Allergy Verified 12/21/24 17:46 Review of Systems Review of Systems: CONST: Negative for fever, body aches and chills. HENT: Negative for neck pain/stiffness, headache, congestion, sore throat, swelling. EYES: Negative for discharge/pain or vision changes. RESP: Negative for cough/hemoptysis and shortness of breath. CV: Negative chest pain, difficulty breathing, palpitations. ABD: Negative pain, nausea, vomiting. : Negative increase frequency, dysuria, blood in urine or stool. MUSC: Negative for muscle aches, edema. R side lumbar back pain radiating to posterior mid thigh SKIN: Negative rash, lesions/sores. NEURO: Negative headache, dizziness, weakness. Yes all other systems are reviewed and are negative [facility] Past Medical History Attestation statement: The following information was validated with the patient. Source: old records reviewed and nursing notes reviewed Medical History Asthma Social History Social History Alcohol intake: current Alcohol type: beer Patient Tobacco Use Status: Current everyday Tobacco user Substance Use Type: Marijuana Advance Directives: No Advance Directives Information Provided: Yes Do you have a plan to hurt others: No Plan Physical Exam Vital Signs: Vital Signs: Last Vital Signs Temp 98 F 12/21/24 17:43 Pulse 85 12/21/24 17:43 Resp 18 12/21/24 17:43 BP 123/73 12/21/24 17:43 Pulse Ox 98 12/21/24 17:43 O2 Del Method Room Air 12/21/24 17:43 BMI result Body Mass Index 24.4 GENERAL APPEARANCE: ?AxOx4, generally well-appearing, no acute distress. HEENT: ?NC, AT. MMM. EOMI, clear conjunctiva, oropharynx clear. NECK: ?Supple without lymphadenopathy.? No stiffness or restricted ROM. HEART:? Normal rate and regular rhythm, normal S1/S2, no m/r/g LUNGS:? CTAB, moving air well. No crackles or wheezes are heard. ABDOMEN: ?Soft, nontender, nondistended with good bowel sounds heard. BACK: No CVAT, no obvious deformity. TTP of right lumbar paraspinal muscles, over right SI joint, no midline spinal tenderness, no bony abnormalities or step-offs palpated. EXTREMITIES: ?Without cyanosis, clubbing or edema. NEUROLOGICAL: ?Grossly nonfocal. Alert and oriented, moving all 4 extremities. Observed to ambulate with slow, steady gait with cane due to lumbar back pain. Skin: ?Warm and dry without any rash. Course Course Course Narrative: BIMAL Bermudez 12/21/24 [id number] This is a Rapid Medical Examination (RME) performed by Shyam Sanchez PA-C in triage. Full HPI, ROS, assessment and treatment plan per primary provider in the Main ED. Hx: 49 yo M here for eval of right lower back pain w/ radiation down RLE. seen here 12/12/24 - xr unremarkable, prescribed flexeril and lido patches with some improvement however pain has returned. no new injury/trauma since visit Plan: further eval in back. xrs taken on 12/12/24 Medical Decision Making Medical Decision Making MDM Narrative: 49-year-old male without significant medical history presents to the ED for ongoing right side lumbar back pain radiating down right posterior mid thigh. Patient seen a week and a half ago for same symptoms, states pain has been steady, has not improved. Denies any recent fall/injury/trauma. Patient states he called his primary care doctor today to be seen, however office stated he should come to the ED for evaluation. Patient had lumbar XR 10 days ago on 12/12/2024 did not reveal any dislocation or fracture, however did reveal mild degenerative disc disease at levels T11-12, L3-4, and L4-5 Denies bowel/bladder incontinence, saddle paresthesias, no weakness of LE,- less likely cauda equina Patient without history of IV drug use, afebrile- less likely SEA VSS, BP of 123/73, pulse rate 85 beats per minute, respiratory rate 18, afebrile with oral temp of 98?, O2 saturation 98% on room air. Physical exam reveals right-sided lumbar paraspinal tenderness to palpation, right SI joint TTP, no midline spinal tenderness, no bony step-offs or abnormalities palpated, no overlying skin changes/ecchymosis. Patient states he has been taking Flexeril as prescribed, was unable to get lidocaine patches due to issue at pharmacy, is unable to afford lidocaine patches OTC. Patient has been taking Tylenol and ibuprofen together, not alternating dose. Patient states he has been less active due to pain. I believe patient has been giving himself gaps of time without coverage due to taking Tylenol and ibuprofen together, restricted movement causing back disease of worse. While in department I medicated patient was 60 mg prednisone, 975 mg p.o. Tylenol, and lidocaine patch to place over right lumbar back. I counseled patient on gentle motion, stretching as this can help relax the muscles, sitting without movement can cause muscles to become more stiffened. I will discharge patient with prednisone taper, extend Flexeril, and ensure patient understands to alternate Tylenol and ibuprofen in order to prevent gaps of time without analgesia. I considered giving patient IM Toradol while in department, however before arrival he took 1200 mg of ibuprofen. I counseled patient that this could damage his kidneys, and anything over 400 mg is not shown to be more effective. Differential Diagnosis Differential Diagnoses: The differential diagnosis associated with the presentation includes Cauda equina SEA Osteoarthritis Lumbar strain Lumbar radiculopathy Admission/Observation Consideration of admission/observation: Escalation of care including admission/observation considered Discharge Plan Discharge Clinical Impression: Lumbar radiculopathy Patient Disposition: Home, Self-Care Instructions: Lumbar Radiculopathy (ED), Lower Back Exercises (ED) Additional Instructions: You were evaluated in the ED today due to lumbar back pain. You recently had a lumbar x-ray done approximately 10 days ago on 12/10/24 which did not reveal any fracture or dislocation however did reveal degenerative changes of your thoracic spine of T11-12, and lumbar spine of L3-4, L4-5 You did not have any new injuries or falls since being seen last and are able to ambulate. I do not believe you have any fracture or dislocation, I believe you were experiencing muscle spasm and lumbar radiculopathy, accompanied by some arthritic changes of your lumbar spine causing you pain. I think you will benefit from a prescription of prednisone which is a steroid that has strong anti-inflammatory properties, additional Flexeril for muscle spasm, and alternating 500 mg of Tylenol, and 400 mg of ibuprofen every 6 hours for pain relief. You should not take these medications together, and you should not miss any doses as this will help prevent any gaps of time where you are not covered by analgesia. Additionally I do not think you should take anything over 400 mg of ibuprofen as there are multiple medical studies that show anything over this is just damaging to the kidney and does not provide any extra analgesia effects. Please follow up with your primary care provider and discuss the degenerative changes seen on the x-ray for them to help manage pain. Please come back to the ED if you experience worsening back pain, fevers over 100.4?, inability to walk, numbness and tingling of your inner thighs, bowel/bladder incontinence, weakness of your legs, or any other new/worsening/concerning symptom. Prescriptions: New prednisone 10 mg tablet 10 mg PO DIRECTED Qty: 42 0RF Rx Instructions: Take 60 mg (6 tabs) daily for 2 days. Then take 50 mg (5 tabs) daily for 2 days. Then take 40 mg (4 tabs) daily for 2 days. Then take 30 mg (3 tabs) daily for 2 days. Then take 20 mg (2 tabs) daily for 2 days. Then take 10 mg (1 tab) daily for 2 days. Then stop. cyclobenzaprine 5 mg tablet 5 mg PO TID Qty: 15 0RF No Action albuterol sulfate 90 mcg/actuation HFA aerosol inhaler 2 puff inhalation Q4-6H PRN (Reason: shortness of breath or wheezing) Qty: 6.7 1RF prednisone 20 mg tablet 40 mg PO DAILY 5 Days Qty: 10 0RF prednisone 20 mg tablet 40 mg PO DAILY 5 Days Qty: 10 0RF cyclobenzaprine 5 mg tablet 5 mg PO Q8H PRN (Reason: muscle spasm) 3 Days Qty: 9 0RF lidocaine [Lidoderm] 5 % adhesive patch,medicated 1 patch topical DAILY Qty: 15 0RF Rx Instructions: leave on most painful area for up to 12 hrs Print Language: Ethiopian
[2024-12-21] MEDS: Lidocaine 4 % Patch ADH..PATCH 1 PATCH TRANSDERMA (20:28)
[2024-12-21 20:40] VITALS: BP 123/73; PULSE 85; RESP 18; TEMP 36.6; O2SAT 98
== END 2024-12-21 20:40 | disposition home or self-care (01) ==
PROVIDERS: Emergency Provider Emergency Medicine
DX: M54.16 Radiculopathy, lumbar region (principal); M54.50 Low back pain, unspecified
CPT/HCPCS: 99283

== ENCOUNTER 2025-01-26 14:08 | Outpatient (AMB) | payer MEDICARE, MEDICAID, SELFPAY ==
--- NOTE | 2025-01-26 14:24 | MHC.OFFVIS ---
Vital Signs 01/26/25 14:30 Height 6 ft Weight 210 lb 4 oz BMI 28.5 BP 133/78 Blood Pressure Location Rt brachial Position Sitting Pulse 90 Pulse Source Pulse Oximeter Pulse Oximetry (%) 96 Oxygen Delivery Method Room Air Intake Visit Reasons: RIGHT SIDED LOW BACK PAIN Intake Note: Pain today 10/25 Global President Required: No Accompanied by: Self / Same As Patient Allergies No Known Allergies Allergy (Verified 01/26/25 14:29) HPI Comments Details: The patient is a 49-year-old male presenting with right-sided low back pain. The pain began approximately 2 months ago when the patient was lifting himself up in his car, exacerbating an old injury from [employer] work. The pain is described as sharp and throbbing, radiating from the lower back to the tailbone and down the back of the right leg. He was seen for this at [facility] [place] [facility] visit room on 12/12/24 and 12/21/24 for lumbar radiculopathy with persistant and worsening low back pain with radiculopathy unresponsive to conservative treatments. The patient reports that the pain worsens with bending and lifting, and he is unable to work due to the severity of the pain. Patient is not able to participate in physical therapy due to severe low back pain. He has tried various medications, including prednisone, ibuprofen, and cyclobenzaprine, with some relief from lidocaine patches. The patient has a history of smoking a pack of cigarettes a day and occasional marijuana use, which may impact his recovery. - Onset: Approximately 2 months ago after lifting in the car - Quality: Sharp, throbbing, shooting, radiating, dull, aching - Location: Right lower back, radiating to tailbone and down the right leg - Exacerbating factors: Bending, lifting, lying flat on the back - Relieving factors: Lidocaine patches, ibuprofen, prednisone trials x2, Tylenol, cyclobenzaprine - Interference: Unable to work, difficulty sleeping, limited mobility - Affect: Pain impacts mood and concentration, especially in the morning. - Analgesia: Current medications include lidocaine patches, ibuprofen, and prednisone; pain level is severe in the morning. - Adverse Effects: No specific adverse effects reported from medications. - Activities of Daily Living: Pain limits ability to work and sleep, requires frequent repositioning. - Aberrant Drug Related Behaviors: No signs of medication misuse or abuse reported. [facility] Medical History Asthma Social History Alcohol intake: current Alcohol type: beer Patient Tobacco Use Status: Current everyday Tobacco user Substance Use Type: Marijuana Review of Systems Const Details: - Musculoskeletal: Reports right-sided low back pain radiating to the right leg. - Neurological: Reports shooting electrical pain in the right leg. Denies bladder or bowel dysfunction or saddle anesthesia. - General: Denies diabetes. All systems reviewed & are unremarkable except as noted in HPI and below Physical Exam Vital Signs: Last Vital Signs Pulse 90 01/26/25 14:30 BP 133/78 01/26/25 14:30 Pulse Ox 96 01/26/25 14:30 Oxygen Delivery Method Room Air 01/26/25 14:30 BMI result Body Mass Index 28.5 General: Appears afebrile. Alert and oriented. Mood and affect appropriate. Follows and participates in conversation appropriately. Respiratory effort is unlabored. No cough. Able to transition from sit to stand unassisted. Ambulates with normal heel strike and toe off on the left, increased back and right leg with heel/toe standing. General: Yes no CVA tenderness Back/Spine/Pelvis Other: Limited lumbar ROM due to pain. Limited back exam due severe low back pain. Demonstrates 5/5 left and 4/5 right strength of quadriceps bilaterally as well as flexion/dorsiflexion of bilateral feet against resistance. 2+ pedal pulses bilaterally. Sraight leg rise with dorsiflexion positive on the right. +1 patellar and achilles reflexes bilaterally. Facet loading test positive bilaterally. Rodri sign, Ollie?s, Pelvic compression and Stinchfield tests are negative bilaterally. No groin pain with I/E hip rotations. Valsalva maneuver is positive. Back: no CVA tenderness Cervical Spine: cervical ROM normal, cervical muscular tenderness and No Cervical spine tenderness Thoracic/Lumbar Spine: thoracic and lumbar spine normal to inspection, Thoracic/lumbar spine scar(s), Lasegue's sign positive on the right and localized, pain with thoraco-lumbar ROM, paraspinal muscle tenderness on the right greater than left, thoraco-lumbar ROM limited, No thoracic spinal tenderness and lumbar spinal tenderness (L4-S1) Pelvis: buttock tenderness on the right Sacroiliac joints: bilaterally nontender Extrem General: Yes capillary refill normal, Yes no clubbing, cyanosis or edema and Yes no calf tenderness Results Reviewed Results Reviewed: XR LUMBOSACRAL SPINE 12/12/24 CLINICAL INFORMATION: R low back pain s/p bending over COMPARISON: None available. TECHNIQUE: Three views of the lumbosacral spine. FINDINGS: There are 5 nonrib-bearing lumbar segments. There is a degrees convex left curvature of the lumbar spine. T11/12 demonstrates mild disc space narrowing and anterior aspects. L3-4 demonstrates mild disc space narrowing with anterior osteophytes. L4-5 injury subtle disc space narrowing with anterior osteophytes. Other levels are unremarkable. IMPRESSION: Mild degenerative disc disease at T11-12, L3-4, L4-5. Assessment & Plan Assessment & Plan (1) Right lumbar radiculopathy: Code(s): M54.16 - Radiculopathy, lumbar region Category: Medical (2) Lumbar spinal stenosis: Code(s): M48.061 - Spinal stenosis, lumbar region without neurogenic claudication Category: Medical (3) Lumbar degenerative disc disease: Code(s): M51.369 - Other intervertebral disc degeneration, lumbar region without mention of lumbar back pain or lower extremity pain Category: Medical (4) Lumbosacral spondylosis: Code(s): M47.817 - Spondylosis without myelopathy or radiculopathy, lumbosacral region Category: Medical Plan An urgent MRI has been ordered to evaluate the possibility of a disc herniation, which may be causing nerve compression and the associated pain. If the MRI confirms a disc herniation and spinal stenosis, an SHEILA injection may be considered as part of the treatment plan vs Neurosurgical evaluation. The patient has been advised to continue using lidocaine patches and has been prescribed gabapentin to manage the pain. Patient is aware to call if pain worsens or if he develops any red flag symptoms to seek emergency care. Patient denies any cauda equina syndrome symptoms at this time. All questions and concerns have been answered and patient agreed with the treatment plan. Follow up for MRI results and sooner as needed. Patient was informed and verbally consented to the use of an ambient scribe for clinic note documentation during this visit. Orders: Orders MR lumbar spine wo con Today M47.817 - Spondylosis without myelopathy or radiculopathy, lumbosacral region, M48.061 - Spinal stenosis, lumbar region without neurogenic claudication, M51.369 - Other intervertebral disc degeneration, lumbar region without mention of lumbar back pain or lower extremity pain, M54.16 - Radiculopathy, lumbar region Medications: New gabapentin 300 mg PO BID 60 caps 0RF pain 30 days M47.817 - Spondylosis without myelopathy or radiculopathy, lumbosacral region, M48.061 - Spinal stenosis, lumbar region without neurogenic claudication, M54.16 - Radiculopathy, lumbar region Changed From lidocaine 5% (Lidoderm) leave on most painful area for up to 12 hrs 1 patch topical DAILY 15 ea 0RF M47.817 - Spondylosis without myelopathy or radiculopathy, lumbosacral region, M48.061 - Spinal stenosis, lumbar region without neurogenic claudication, M51.369 - Other intervertebral disc degeneration, lumbar region without mention of lumbar back pain or lower extremity pain, M54.16 - Radiculopathy, lumbar region To lidocaine 5% (Lidoderm) leave on most painful area for up to 12 hrs 1 patch topical DAILY 30 ea 3RF pain 30 days M47.817 - Spondylosis without myelopathy or radiculopathy, lumbosacral region, M48.061 - Spinal stenosis, lumbar region without neurogenic claudication, M51.369 - Other intervertebral disc degeneration, lumbar region without mention of lumbar back pain or lower extremity pain, M54.16 - Radiculopathy, lumbar region Coding Level of Care Code New Pt Level 4 (32404) Diagnoses Right lumbar radiculopathy M54.16 Lumbar spinal stenosis M48.061 Lumbar degenerative disc disease M51.369 Lumbosacral spondylosis M47.817
[2025-01-26 14:30] VITALS: BP 133/78; PULSE 90; O2SAT 96; BMI 28.5
== END 2025-01-26 15:27 | disposition home or self-care (01) ==
PROVIDERS: PCP Internal Medicine; Visit Provider Nurse Practitioner Family
DX: M54.16 Radiculopathy, lumbar region (principal); M48.061 Spinal stenosis, lumbar region without neurogenic claudication; M51.369 Other intervertebral disc degeneration, lumbar region without mention of lumbar back pain or lower extremity pain; M47.817 Spondylosis without myelopathy or radiculopathy, lumbosacral region
CPT/HCPCS: 99204

== ENCOUNTER → 2025-01-26 14:08 | Outpatient (BNVA) | payer MEDICARE, MEDICAID, SELFPAY | PROVIDERS: PCP Internal Medicine; Visit Provider Nurse Practitioner Family | DX: M47.817 Spondylosis without myelopathy or radiculopathy, lumbosacral region (principal); M51.369 Other intervertebral disc degeneration, lumbar region without mention of lumbar back pain or lower extremity pain; M48.061 Spinal stenosis, lumbar region without neurogenic claudication; M54.16 Radiculopathy, lumbar region | CPT/HCPCS: 99202 ==

== ENCOUNTER → 2025-02-15 17:30 | Outpatient (BNV) | payer MEDICARE, MEDICAID, SELFPAY | PROVIDERS: PCP Internal Medicine; Visit Provider Radiology Diagnostic Radiology | DX: M47.816 Spondylosis without myelopathy or radiculopathy, lumbar region (principal); M48.061 Spinal stenosis, lumbar region without neurogenic claudication | CPT/HCPCS: 72148 ==

== ENCOUNTER 2025-02-15 18:00 | Outpatient (REF) | payer MEDICARE, MEDICAID, SELFPAY ==
--- OUTSIDE RECORDS SUMMARY | 2025-02-10 09:30 | XMS_ITS | Encounter Summary ---
Author Organization [facility] Address [address] [place] [address] Care Team Providers Care Refiner Operator Name Role Phone Calin Krause MD Primary Care Provider [phone] Reason for Visit * Consultation (Routine) - Authorized Specialty Diagnoses / Procedures Referred By Contac t Referred To Contact Physical Therapy Diagnoses Acute right-sided low back pain with right-sided sciatica Calin Krause MD [address] [place] [address] Phone: tel: fax: Outpatient Rehabilitation - [address] Phone: tel: fax: Referral ID Status Reason Start Date Expiration Date Visits Requested Visits Authorized [id number] Authorized Specialty Services Required 12/27/2024 12/27/2025 9 9 Encounter Details Date Type Department Care Team (Latest Contact Info) Description 02/10/2025 9:30 AM EDT Evaluation Outpatient Rehabilitation - [address] [phone] Brian Almeida, PT [address] [place] [address] Acute right-sided low back pain with right-sided sciatica Social History Tobacco Use Types Packs/Day Years Used Date Smoking Tobacco: Every Day Cigarettes Smokeless Tobacco: Never Alcohol Use Standard Drinks/Week Comments Yes 0 (1 standard drink = 0.6 oz pur e alcohol) social Sex and Gender Information Value Date Recorded Sex Assigned at Not on file Legal Sex Male 5:17 AM EST Gender Identity Not on file Sexual Orientation Not on file documented as of this encounter Progress Notes * Brian Almeida, PT - 02/10/2025 9:30 AM EDT Images from the original note were not included. [facility] - Outpatient PHYSICAL THERAPY EVALUATION Date: 02/10/2025 Visit Number: 1 Patient Name: Pop Jennings : 1975 Age: 49 y.o. Gender: male Diagnosis: ICD-10-CM ICD-9-CM 1. Acute right-sided low back pain with right-sided sciatica M54.41 724.2 Ambulatory referral to Physical Therapy and Athletic Training 724.3 Date of Onset/Surgery: 12/27/2024 Pt comes in with C/O back pain, from low back to base of sacrum. Pt also experiences R sided radicular Sx to lateral ankle. Pt has Hx of back pain, but his particularepisode accordance story aprox 1-2 months ago. Reports when getting out of the car and twist, felt apop and has been in significant pain since. Pt reports saw MD who prescribed prednisone pack x 2 wit h temporary result both times, but Sx returned. Pt referred to PT and pain management. 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 Pt does not have f/u with Dr. Krause's office. Referring Provider: Calin Krause MD Insurance: Payor: [employer]ARE / Plan: [facility] MEDICARE COMPLETE / Product Type: *No Product type* / Patient identified by: Brian Almeida, PT Language: Speaks and understands Cymro as preferred language with no gta required Chart Reviewed: Yes Medications: Current Outpatient Medications on File Prior to Visit Medication Sig Dispense Refill acetaminophen (TYLENOL 8 HOUR) 650 mg 8 hr tablet Take 1 tablet (650 mg total) by mouth every 8 (eight) hours if needed. albuterol HFA (PROAIR HFA ; PROVENTIL HFA ; VENTOLIN HFA) 90 mcg/actuation inhaler atorvastatin (LIPITOR) 20 mg tablet Take 1 tablet (20 mg total) by mouth 1 (one) time each day. (Patient not taking: Reported on 02/09/2025) 90 each 1 cyclobenzaprine (FLEXERIL) 10 mg tablet Take 1 tablet (10 mg total) by mouth at bedtime as needed for muscle spasms. 30 tablet 3 gabapentin (NEURONTIN) 300 mg capsule Take 1 capsule (300 mg total) by mouth 2 (two) times a day. ibuprofen (ADVIL,MOTRIN) 400 mg tablet Take 1 tablet (400 mg total) by mouth every 8 (eight) hours if needed. lidocaine (LIDODERM) 5 % patch Apply 1 patch topically 1 (one) time each day. predniSONE (DELTASONE) 10 mg tablet Take 1 tablet (10 mg total) by mouth 1 (one) time each day. No current facility-administered medications on file prior to visit. Advised Patient to contact MD with any questions regarding medications and importance of managing medication information. has a past medical history of Asthma and Backache. has a past surgical history that includes Knee surgery (Right) and Colonoscopy. has No Known Allergies. Precautions: NA SUBJECTIVE History of Present Illness/Subjective Report: Pt comes in with C/O back pain, from low back to baseof sacrum. Pt also experiences R sided radicular Sx to lateral ankle. Pt has Hx of back pain, but his particular episode accordance story aprox 1-2 months ago. Reports when getting out of the car and twist, felt a pop and has been in significant pain since. Pt reports saw MD who prescribed prednisone pack x 2 with temporary result both times, but Sx returned. 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 Pt does not have f/u with Dr. Krause's office. Pain: Pain location(s): R sided low back pain with radicular Sx 12/25 Home Environment: Pt lives with girlfriend in a 2 story home with stairs. Prior Level of Function: no limitations. 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 Current Functional Limitations: Reported by Patient Pt unable to sleep through night, typically getting no more than 4-5 hrs sleep a night; difficulty dressing, poor sitting capacity 10-15 min; 15-20standing/walking capacity. Is the patient at Risk for Falls: No OBJECTIVE General Observations/Posture/Comments: L lateral shift, PPT *= Pain Spine ROM-- In Degrees Active Lumbar flexion (0-90) Full with significant end range pain and torturous return Lumbar extension (0-35) 14* Lumbar side bending R (0-25) 30 * Lumbar side bending L (0-25) 30* DTR's: +1 B LE Sensation: intact to light touch B LE MMT Right Left Ankle PF (S 1)---SLHR reps Unable to attempt due to back pain Unable to attempt due to back pain Ankle DF (L 4-L 5) 5/5 5/5 Knee extension (L 3) 5/5 5/5 Knee flexion (S 2) 5/5 5/5 Hip ER 5/5 5/5 Hip IR 4/5 4/5 Hip flexion (L 1-2) 5/5 5/5 Hip abduction 4-/5 4-/5 Hip adduction 4/5 4/5 Hip extension Unable to lay prone Unable to lay prone Ability to standard bridge Clears table with *% Ability to unilateral bridge 0% * Clears table only % * L hip flexion passively to 107 deg with C/O hip pain End range hip pain B hips Palpation: TTP over lumbosacral spine Special Tests: Positive: Negative: ELIUD and EDDIE (hip pain, but no back pain/reproduction of Sx), SLR Treatment: Supine lateral shift correction, incrementally. Discussed attempting to correct lateral shift, at least in NWB. Also recommended pt not be seated for extended periods of time. Pt did well with manuallumbar distraction, which may be beneficial as part of treatment program. If mechanical traction used, amount of distraction will have to be achieved cautiously and slowly. ASSESSMENT: Rehabilitation Potential: Rehab Potential: Condition Has Potential to Improve Pop Jennings is a 49 y.o. male presenting for outpatient physical therapy evaluation with complaints of back pain . Patients progress may be limited by pain levels. . Skilled Physical therapy is medically necessary to reach PT goals, improve ROM, strength, function and pain levels Learning Needs: Were Patient Learning needs assessed: Yes Learning Preferences: Explanation and Demonstration Barriers to Learning: No Barriers to Learning Patient Education: [x] Discussed, with patient and/or caregiver, the recommended plan of care/goals, the importance oftherapy and appointment compliance in order to achieve goals in a timely manner. GOALS Goals Addressed This Visit's Progress no pain. back to work (pt-stated) PT LTG x 15 visits from [facility] 02/10/25 [x] = goal MET [] = goal NOT MET [] Pt will be able to sit through a 90 min movie, [] Pt will wake less than 3 times a wk due to back pain , [] Pt will be able to return to work PT STG x 8 visits from [facility] 02/10/25 [x] = goal MET [] = goal NOT MET [] Pt will present without lateral shift [] Pt will be able to negotiate stairs reciprocally without limitation due to back pain , [] Pt will report average pain level decrease of 2 /10, [] Pt will be able to sleep at least 6hrs/ a night due to back pain, [] Pt will increase sitting capacity to 30 minutes PLAN POC Development/Review: Initial Evaluation; Participants: Patient Skilled Therapy Plan Required to improve ROM, strength, function, pain levels and achiever PT/pt goals. Planned Therapy Interventions: Biofeedback, Cold Pack, E-Stim -- Unattended, Hot Pack, Kinesiotaping, Manual Therapy, Mechanical Traction, Neuromuscular Re- education, Soft Tissue Mobility, TENS, Therapeutic Activity, Therapeutic Exercise, and Ultrasound Skilled PT recommended at a freq of 2 a week for 15 visits, with a re-eval after 4 wks. Recommended Consults: none Equipment Recommended: none; Equipment Provided: none BILLING TOTAL TREATMENT TIME: 50 Minutes Evaluation Medium Complexity Justification ::: A history of present problem with 1 - 2 personal factors and/or co-morbidities that impact the plan of care Documentation completed by Brian Almeida, PT OUTPATIENT REHABILITATION [address] [address] Dept: [phone] Dept PATIENT NAME: Pop Jennings : 1975 Certification: This is to certify that the above named patient, who is under my care, requires skilled Therapy services as described in the above treatment plan. I further certify that the services outlined in this plan are skilled and medically necessary. I have reviewed this plan for rehabilitation services, and I recommend that these services continue to meet the above stated goals and plan. SIGNATURE: DATE Calin Krause MD Referring provider documented in this encounter Plan of Treatment Upcoming Encounters Date Type Department Care Team (Late st Contact Info) Description 02/17/2025 11:30 AM EDT Treatment Outpatient Rehabilitation - [address] [phone] Carmen Mejias, AWNING ERECTOR 02/21/2025 11:30 AM EDT Treatment Outpatient Rehabilitation - [address] [phone] Carmen Mejias, AWNING ERECTOR 02/24/2025 11:30 AM EDT Treatment Outpatient [facility] - [address] [phone] Carmen Mejias, AWNING ERECTOR 02/28/2025 11:30 AM EDT Treatment Outpatient [facility] - [address] [phone] Carmen Mejias, AWNING ERECTOR 03/03/2025 11:30 AM EDT Treatment Outpatient Rehabilitation - [address] [phone] Carmen Mejias, AWNING ERECTOR 03/07/2025 11:30 AM EDT Treatment Outpatient Rehabilitation [address] [phone] Carmen Mejias, AWNING ERECTOR 03/14/2025 12:15 PM EDT Treatment Outpatient Rehabilitation [address] [phone] Brian Almeida, PT [address] [place] [address] 03/28/2025 1:00 PM EST Office Visit [facility] Hematology Oncology [address] [place] [phone] Socorro Chambers PA [address] [place] [address] 02/09/2026 3:00 PM EDT Office Visit Endocrinology [facility] [address] [place], [place] [phone] Rosanne Maxwell PA [address] [place] [address] documented as of this encounter Goals Goal Patient Goal Type Associated Problems Recent Progress Patient-Stated? Author no pain. back to work General Yes Brian Almeida, PT PT STG x 8 visits from [facility] 02/10/25 General No Brian Almeida, PT Note: [x] = goal MET [] = goal NOT MET [] Pt will present without lateral shift [] Pt will be able to negotiate stairs reciprocally without limitation due to back pain , [] Pt will report average pain level decrease of 2 /10, [] Pt will be able to sleep at least 6hrs/ a night due to back pain, [] Pt will increase sitting capacity to 30 minutes PT LTG x 15 visits from [facility] 02/10/25 General No Brian Almeida, PT Note: [x] = goal MET [] = goal NOT MET [] Pt will be able to sit through a 90 min movie, [] Pt will wake less than 3 times a wk due to back pain , [] Pt will be able to return to work documented as of this encounter Visit Diagnoses Diagnosis Acute right-sided low back pain with right-sided sciatica documented in this encounter Orders Outpatient Referral Count Last Ordered Date Fir st Ordered Date AMB REFERRAL TO [facility] 02/10/2025 documented in this encounter Care Teams Refiner Operator Relationship Specialty Start Date End Date Calin Krause MD [address] [place] [address] PCP - General Internal Medicine 10/23/21 documented as of this encounter
--- NOTE | ~2025-02-15 | MR_ITS ---
CLINICAL HISTORY: M48.061 - Spinal stenosis, lumbar region without neurogenic claudication MR lumbar spine without gadolinium Comparison: None Findings: Normal alignment. Multilevel disc desiccation and height loss. Congenitally diffuse spinal canal narrowing. Conus medullaris within normal limits. Multilevel facet arthropathy with ligamentum flavum buckling and multilevel disc bulges. Mild spinal canal narrowing at L1-L2 with mild bilateral foraminal stenoses. Disc bulge with small superimposed central disc protrusion at L2-L3. Moderate to severe spinal canal narrowing. Severe left and moderate right bilateral foraminal stenoses. Disc bulge with prominent central disc extrusion at L3-L4. Severe spinal canal narrowing with severe bilateral foraminal stenoses. Disc bulge at L4-L5. Moderate spinal canal narrowing. Severe left moderate right bilateral foraminal stenoses. Disc bulge at L5-S1. No high-grade spinal canal narrowing. Severe left foraminal stenoses. Paraspinous musculature intact. 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 This document has been electronically signed by: Mayank Weston MD on 02/15/2025 19:20:50
--- OUTSIDE RECORDS SUMMARY | 2025-02-15 18:03 | XMS_ITS | Clinical Summary ---
Author Organization [facility] [address] [place] [address] [place] [phone] Phone Care Team Providers Care Home Health Scheduler Name Role Phone Calin Krause MD Primary Care Provider [phone] Allergies No known active allergies Medications albuterol HFA (PROAIR HFA ; PROVENTIL HFA ; VENTOLIN HFA) 90 mcg/actuation inhaler Active acetaminophen (TYLENOL 8 HOUR) 650 mg 8 hr tablet Take 1 tablet (650 mg total) by mouth every 8 (eight) hours if needed. 04/22/20 23 Active cyclobenzaprin e (FLEXERIL) 10 mg tablet Take 1 tablet (10 mg total) by mouth at bedtime as needed for muscle spasms. 30 tablet 3 01/18/20 25 Active atorvastatin (LIPITOR) 20 mg tablet Take 1 tablet (20 mg total) by mouth 1 (one) time each day. 90 each 1 01/19/20 25 Active Additional Information Patient not taking.Reported on 02/09/2025 gabapentin (NEURONTIN) 300 mg capsule Take 1 capsule (300 mg total) by mouth 2 (two) times a day. 01/27/20 25 Active ibuprofen (ADVIL,MOTRIN) 400 mg tablet Take 1 tablet (400 mg total) by mouth every 8 (eight) hours if needed. 12/22/19 25 Active lidocaine (LIDODERM) 5 % patch Apply 1 patch topically 1 (one) time each day. 02/05/20 25 Active predniSONE (DELTASONE) 10 mg tablet Take 1 tablet (10 mg total) by mouth 1 (one) time each day. 12/22/19 25 Active cyclobenzaprin e (FLEXERIL) 10 mg tablet Take 1 tablet (10 mg total) by mouth at bedtime as needed for muscle spasms. 30 tablet 1 12/28/19 25 025 Discontinu ed(Reorder ) predniSONE (DELTASONE) 20 mg tablet Take 2 tablets (40 mg total) by mouth See administration instructions for 3 days, THEN 1 tablet (20 mg total) See administration instructions for 3 days. 9 tablet 01/18/20 25 025 Active Problems Problem Noted Date Diagnosed Date Ulcers of both great toes ([facility] V24, [facility] V28) 07/22/2023 Encounters Date Type Department Care Team Description 02/10/2025 9:30 AM EDT Evaluation Outpatient Rehabilitation [address] [phone] Brian Almeida, PT Acute right-sided low back pain with right-sided sciatica 02/09/2025 4:00 PM EDT Consult Endocrinology - [address] [phone] Rosanne Maxwell PA Multiple thyroid nodules (Primary Dx); Subclinical hyperthyroidism 01/17/2025 2:45 PM EDT Office Visit Adult [address] [phone] Calin Krause MD Acute right-sided low back pain with right-sided sciatica (Primary Dx); Multiple thyroid nodules 12/30/2024 Telephone Adult Medicine [address] [phone] Calin Krause MD 12/29/2024 7:52 AM EDT - 12/29/2024 11:59 PM EDT Hospital Encounter Radiology Department - [address] [phone] Goiter Discharge Disposition: Home or Self Care 12/27/2024 10:30 AM EDT Office Visit Adult Medicine [address] [phone] Calin Krause MD Physical exam (Primary Dx); Acute right-sided low back pain with right-sided sciatica; Need for tetanus, diphtheria, and acellular pertussis (Tdap) vaccine; Goiter; Vitamin D deficiency disease; Screening for deficiency anemia; Screening for diabetes mellitus (DM); Screening for hyperlipidemia; Leukocytosis, unspecified type 12/26/2024 Telephone Adult Medicine [address] [phone] Calin Krause MD 12/13/2024 Telephone Adult Medicine [address] [phone] Calin Krause MD from Last 3 Months Immunizations Immunization Administration Dates Next Due Moderna SARS-CoV-2 COVID-19, mRNA, LNP-S, preservative free 01/24/2021,12/27/2020 Td Tetanus diptheria (Tdvax) 7yo and older 11/18 Tdap Tetanus diptheria acell ular pertussis (Boostrix; Adacel) 7yo and older 12/27/2024 Surgical History Surgery Date Site/Laterality Comments KNEE SURGERY Right PROCEDURE: HISTORICAL KNEE SURGERY; COMMENT: in 2016 by Stephane gay COLONOSCOPY Medical History Medical History Date Comments Asthma DX:Asthma Backache Family History Medical History Relation Name Comments Asthma Mother Emphysema, smok er Cancer Neg Hx Diabetes Neg Hx Relation Name Status Comments Father Mother Alive Social History Tobacco Use Types Packs/Day Years Used Date Smoking Tobacco: Every Day Cigarettes Smokeless Tobacco: Never Tobacco Cessation:Ready to Q uit: Not Asked; Counseling Given: Not Answered Alcohol Use Standard Drinks/Week Comments Yes 0 (1 standard drink = 0.6 oz pur e alcohol) social Sex and Gender Information Value Date Recorded Sex Assigned at Not on file Legal Sex Male 5:17 AM EST Gender Identity Not on file Sexual Orientation Not on file Obstetrics History Last Filed Vital Signs Vital Sign Reading Time Taken Comments Blood Pressure 117/87 02/09/2025 3:45 PM EDT Pulse 93 02/09/2025 3:45 PM EDT Temperature 36.5 C (97.7 F) 02/09/2025 3:45 PM EDT Respiratory Rate 16 12/27/2024 10:1 2 AM EDT Oxygen Saturation - - Inhaled Oxygen Concentration - - Weight 95.6 kg (210 lb 12.8 oz) 02/09/2025 3:45 PM EDT Height 182.9 cm (6') 02/09/2025 3:45 PM EDT Body Mass Index 28.59 02/09/2025 3:45 PM EDT Plan of Treatment Upcoming Encounters Date Type Department Care Team (Late st Contact Info) Description 02/17/2025 11:30 AM EDT Treatment Outpatient [facility] - [address] [phone] Carmen Mejias, REGISTERED PUBLIC SURVEYOR 02/21/2025 11:30 AM EDT Treatment Outpatient [facility] - [address] [phone] Carmen Mejias, REGISTERED PUBLIC SURVEYOR 02/24/2025 11:30 AM EDT Treatment Outpatient [facility] - [address] [phone] Carmen Mejias, REGISTERED PUBLIC SURVEYOR 02/28/2025 11:30 AM EDT Treatment Outpatient [facility] - [address] [phone] Carmen Mejias, REGISTERED PUBLIC SURVEYOR 03/03/2025 11:30 AM EDT Treatment Outpatient [facility] - [address] [phone] Carmne Mejias, REGISTERED PUBLIC SURVEYOR 03/07/2025 11:30 AM EDT Treatment Outpatient Rehabilitation - [address] [phone] Carmen Mejias, REGISTERED PUBLIC SURVEYOR 03/14/2025 12:15 PM EDT Treatment Outpatient Rehabilitation - [address] [phone] Brian Almeida, PT [address] [place] [address] 03/28/2025 1:00 PM EST Office Visit [facility] Hematology Oncology [address] [place] [phone] Socorro Chambers PA [address] [place] [address] 02/09/2026 3:00 PM EDT Office Visit Endocrinology - [place] [address] [place] [phone] Rosanne Maxwell PA [address] [place] [address] Health Maintenance Due Date Last Done Comments Colorectal Cancer Screening: Colonoscopy 1976 Hepatitis B Vaccines (1 of 3 - 19+ 3-dose series) 1995 Pneumococcal Vaccine: Pediatrics (0 to 5 Years) and At-Risk Patients (6 to 49 Years) (1 of 2 - PCV) 1995 HIV Screening 04/27/2022 Hepatitis C Screening 04/27/2022 Medicare Annual Wellness Visit 04/27/2022 Social Influencers of Health Screening 04/27/2022 Depression Screening 05/18/2024 COVID-19 Vaccine (3 - 2024-2 6 season) 2025 01/24/2021, 12/27/2020 Influenza Vaccine (#1) 2025 Cholesterol Screening (Lipid Panel) 01/18/2030 01/18/2025 DTaP,Tdap,and Td Vaccines (3 - Td or Tdap) 12/27/2034 12/27/2024, 11/18/2012 RSV Immunization Adult Patients (1 - 1-dose 75+ series) 2051 HIB Vaccines Aged Out No longer eligi [...] on patient's age to complete this topic Goals Goal Patient Goal Type Associated Problems Recent Progress Patient-Stated? Author no pain. back to work General Yes Brian Almeida, PT PT STG x 8 visits from [facility] 02/10/25 General No Brian Almeida, PT Note: [...] minutes PT LTG x 15 visits from [facility] 02/10/25 General No Brian Almeida, PT Note: [x] = goal MET [] = goal NOT MET [] Pt will be able to sit through a 90 min movie, [] Pt will wake less than 3 times a wk due to back pain , [] Pt will be able to return to work Procedures Procedure Name Priority Date/Time Associated Diagnosis Comments THYROID STIMULATING HORMONE WITH REFLEX TO FREE T4 AND FREE T3 Routine 02/09/2025 4:14 PM EDT Subclinical hyperthyroidism THYROID PEROXIDASE AND THYROGLOBULIN ANTIBODIES Routine 02/09/2025 4:14 PM EDT Subclinical hyperthyroidism TRIIODOTHYRONINE FREE Routine 01/18/2025 9:37 AM EDT Physical exam Acute right-sided low back pain with right-sided sciatica Goiter Vitamin D deficiency disease Screening for deficiency anemia Screening for diabetes mellitus (DM) Screening for hyperlipidemia FREE THYROXINE WITH REFLEX TO FREE TRIIODOTHYRONINE Routine 01/18/2025 9:37 AM EDT Physical exam Acute right-sided low back pain with right-sided sciatica Goiter Vitamin D deficiency disease Screening for deficiency anemia Screening for diabetes mellitus (DM) Screening for hyperlipidemia CBC WITH AUTO DIFFERENTIAL Routine 01/18/2025 9:37 AM EDT Physical exam Acute right-sided low back pain with right-sided sciatica Goiter Vitamin D deficiency disease Screening for deficiency anemia Screening for diabetes mellitus (DM) Screening for hyperlipidemia HEMOGLOBIN A1C Routine 01/18/2025 9:37 AM EDT Physical exam Acute right-sided low back pain with right-sided sciatica Goiter Vitamin D deficiency disease Screening for deficiency anemia Screening for diabetes mellitus (DM) Screening for hyperlipidemia THYROID STIMULATING HORMONE WITH REFLEX TO FREE T4 AND FREE T3 Routine 01/18/2025 9:37 AM EDT Physical exam Acute right-sided low back pain with right-sided sciatica Goiter Vitamin D deficiency disease Screening for deficiency anemia Screening for diabetes mellitus (DM) Screening for hyperlipidemia VITAMIN D 25 HYDROXY Routine 01/18/2025 9:37 AM EDT Physical exam Acute right-sided low back pain with right-sided sciatica Goiter Vitamin D deficiency disease Screening for deficiency anemia Screening for diabetes mellitus (DM) Screening for hyperlipidemia CBC AND DIFFERENTIAL Routine 01/18/2025 9:37 AM EDT Physical exam Acute right-sided low back pain with right-sided sciatica Goiter Vitamin D deficiency disease Screening for deficiency anemia Screening for diabetes mellitus (DM) Screening for hyperlipidemia COMPREHENSIVE METABOLIC PANEL Routine 01/18/2025 9:37 AM EDT Physical exam Acute right-sided low back pain with right-sided sciatica Goiter Vitamin D deficiency disease Screening for deficiency anemia Screening for diabetes mellitus (DM) Screening for hyperlipidemia LIPID PANEL WITH REFLEX TO DIRECT LDL Routine 01/18/2025 9:37 AM EDT Need for lipid screening US HEAD NECK SOFT TISSUE Routine 12/29/2024 8:14 AM EDT Goiter from Last 3 Months Results * Thyroid stimulating hormone with reflex to free t4 and free t3 (02/09/2025 4:14 PM EDT) Only the most recent of2 resultswithin the time period is included. TSH 0.77 0.40 - 4.00 mcIU/mL LAB CHEMISTRY METHOD 02/09/2025 7:10 PM EDT [facility] Blood Venous blood specimen / Unknown Venipuncture / Unknown 02/09/2025 4:14 PM EDT 02/09/2025 4:14 PM EDT Rosanne WALLIS LAB BLOOD ORDERABLES Final Result Performing Organization Address [facility]/ZIP Co de Phone Number [facility] [address] [place] [address], [place] [phone] * Thyroid peroxidase and thyroglobulin antibodies (02/09/2025 4:14 PM EDT) Pathologist [facility] Antithyroglobulin Ab <15.0 <=60.0 I Unit/mL LAB CHEMISTRY METHOD 02/09/2025 7:33 PM EDT [facility] Thyroid Peroxidase Ab 43.0 <=60.0 I Unit/mL LAB CHEMISTRY METHOD 02/09/2025 7:33 PM EDT [facility] Blood Venous blood specimen / Unknown Venipuncture / Unknown 02/09/2025 4:14 PM EDT 02/09/2025 4:14 PM EDT us Rosanne WALLIS LAB BLOOD ORDERABLES Final Result [facility] [address] [place] [address], [place] [phone] * Free thyroxine with reflex to free triiodothyronine (01/18/2025 9:37 AM EDT) Free T4 1.47 0.70 - 1.80 ng/dL LAB CHEMISTRY METHOD 01/18/2025 3:09 PM EDT [facility] Blood Venous blood specimen / Unknown Venipuncture / Unknown 01/18/2025 9:37 AM EDT 01/18/2025 9:37 AM EDT us Calin Krause MD LAB BLOOD ORDERABLES Final Result [facility] [address] [place] [address], [place] [phone] * (ABNORMAL) Lipid panel with reflex to direct LDL (01/18/2025 9:37 AM EDT) Cholesterol 255(H) 0 - 200 mg/dL LAB CHEMISTRY METHOD 01/18/2025 1:25 PM EDT [facility] Triglycerides 59 0 - 150 mg/dL LAB CHEMISTRY METHOD 01/18/2025 1:25 PM EDT [facility] HDL 63 >=40 mg/dL LAB CHEMISTRY METHOD 01/18/2025 1:25 PM EDT [facility] LDL Calculated 180(H) 0 - 100 mg/dL LAB CHEMISTRY METHOD 01/18/2025 1:25 PM EDT [facility] Comment:Estimated LDL Calcul ated using equation: Total cholesterol - HDL cholesterol - (Triglycerides/5) VLDL Cholesterol Aayush 11.8 mg/dL LAB CHEMISTRY METHOD 01/18/2025 1:25 PM EDT [facility] Non HDL Chol. (LDL+VLDL) 192(H) <145 mg/dL LAB CHEMISTRY METHOD 01/18/2025 1:25 PM EDT [facility] Chol/HDL Ratio 4.0 0.0 - 4.4 LAB CHEMISTRY METHOD 01/18/2025 1:25 PM T [facility] Blood Venous blood specimen / Unknown Venipuncture / Unknown 01/18/2025 9:37 AM EDT 01/18/2025 9:37 AM EDT us Calin Krause MD LAB BLOOD ORDERABLES Final Result [facility] [address] [place] [address], * (ABNORMAL) CBC auto differential (01/18/2025 9:37 AM EDT) WBC 13.2(H) 4.8 - 10.8 K/mcL LAB HEMETOLOGY METHOD 01/18/2025 12:28 PM EDT [facility] RBC 5.00 4.50 - 5.50 M/mcL LAB HEMETOLOGY METHOD 01/18/2025 12:[facility] Hemoglobin 14.4 13.5 - 17.5 g/dL LAB HEMETOLOGY METHOD 01/18/2025 12:28 PM EDT [facility] Hematocrit 44.7 42.0 - 54.0 % LAB HEMETOLOGY METHOD 01/18/2025 12:28 PM EDT [facility] MCV 89.0 79.0 - 98.0 FL LAB HEMETOLOGY METHOD 01/18/2025 12:28 PM EDT [facility] MCH 28.7 27.0 - 32.0 pcg LAB HEMETOLOGY METHOD 01/18/2025 12:28 PM EDT [facility] MCHC 32.2 32.0 - 37.0 g/dL LAB HEMETOLOGY METHOD 01/18/2025 12:28 PM EDT [facility] RDW 15.6(H) 11.0 - 15.0 % LAB HEMETOLOGY METHOD 01/18/2025 12:28 [facility] Platelets 334 130 - 400 K/mcL LAB HEMETOLOGY METHOD 01/18/2025 12:28 PM [facility] MPV 10.4 7.0 - 11.0 FL LAB HEMETOLOGY METHOD 01/18/2025 12:28 PM [facility] NRBC 0.0 <1.0 % LAB HEMETOLOGY METHOD 01/18/2025 12:28 PM [facility] NRBC Absolute 0.00 <0.10 K/mcL LAB HEMETOLOGY METHOD 01/18/2025 12:28 PM [facility] Neutrophils Relative 70.9 % LAB HEMETOLOGY METHOD 01/18/2025 12:28 PM [facility] Lymphocytes Relative 20.9 % LAB HEMETOLOGY METHOD 01/18/2025 12:28 PM [facility] Monocytes Relative 6.9 % LAB HEMETOLOGY METHOD 01/18/2025 12:28 PM [facility] Eosinophils Relative 0.6 % LAB HEMETOLOGY METHOD 01/18/2025 12:28 PM [facility] Basophils Relative 0.2 % LAB HEMETOLOGY METHOD 01/18/2025 12:28 PM [facility] Immature Granulocytes Relative 0.5 % LAB HEMETOLOGY METHOD 01/18/2025 12:28 PM [facility] Neutrophils Absolute 9.37(H) 1.50 - 7.00 K/mcL LAB HEMETOLOGY METHOD 01/18/2025 12:28 PM [facility] Lymphocytes Absolute 2.77 1.00 - 5.00 K/mcL LAB HEMETOLOGY METHOD 01/18/2025 12:28 PM [facility] Monocytes Absolute 0.92 0.20 - 1.00 K/mcL LAB HEMETOLOGY METHOD 01/18/2025 12:28 PM [facility] Eosinophils Absolute 0.08 0.00 - 0.50 K/mcL LAB HEMETOLOGY METHOD 01/18/2025 12:28 PM [facility] Basophils Absolute 0.03 0.00 - 0.20 K/[facility] HEMETOLOGY METHOD 01/18/2025 12:28 PM EDT [facility] Immature Granulocytes Absolute 0.07(H) 0.00 - 0.03 K/[facility] LAB HEMETOLOGY METHOD 01/18/2025 12:28 PM EDT [facility] Blood Venous blood specimen / Unknown Venipuncture / Unknown 01/18/2025 9:37 AM EDT 01/18/2025 9:37 AM EDT Calin Krause MD LAB BLOOD ORDERABLES Final Result Performing Organization Address City/[facility]/ZIP Co de Phone Number [facility] [address] [place] [address], [place] [phone] * Vitamin D 25 hydroxy (01/18/2025 9:37 AM EDT) Vit D, 25-Hydroxy 31.1 30.0 - 80.0 ng/mL LAB CHEMISTRY METHOD 01/18/2025 2:07 PM EDT [facility] Blood Venous blood specimen / Unknown Venipuncture / Unknown 01/18/2025 9:37 AM EDT 01/18/2025 9:37 AM EDT Calin Krause MD LAB BLOOD ORDERABLES Final Result Performing Organization Address City/[facility]/ZIP Co de Phone Number [facility] [address] [place] [address], [place] [phone] * Triiodothyronine free (01/18/2025 9:37 AM EDT) T3, Free 326 230 - 420 pcg/dL LAB CHEMISTRY METHOD 01/18/2025 3:57 PM EDT [facility] Blood Venous blood specimen / Unknown Venipuncture / Unknown 01/18/2025 9:37 AM EDT 01/18/2025 9:37 AM EDT Calin Krause MD LAB BLOOD ORDERABLES Final Result [facility] [address] [place] [address], [place] [phone] * Hemoglobin A1c (01/18/2025 9:37 AM EDT) Pathologist [facility] Hemoglobin A1C 6.2 <6.5 % LAB CHEMISTRY METHOD 01/18/2025 2:13 PM EDT [facility] Mean Bld Glu Estim. 131 mg/dL LAB CHEMISTRY METHOD 01/18/2025 2:13 PM EDT [facility] Blood Venous blood specimen / Unknown Venipuncture / Unknown 01/18/2025 9:37 AM EDT 01/18/2025 9:37 AM EDT Calin Krause MD LAB BLOOD ORDERABLES Final Result Performing Organization Address [facility]/ZIP Co de Phone Number [facility] [address] [place] [address], [place] [phone] * (ABNORMAL) Comprehensive metabolic panel (01/18/2025 9:37 AM EDT) [facility] Sodium 139 133 - 145 mmol/L LAB CHEMISTRY METHOD 01/18/2025 1:25 PM EDT [facility] Potassium 3.9 3.5 - 5.5 mmol/L LAB CHEMISTRY METHOD 01/18/2025 1:25 PM EDT [facility] Chloride 106 96 - 110 mmol/L LAB CHEMISTRY METHOD 01/18/2025 1:25 PM EDT [facility] CO2 26 21 - 32 mmol/L LAB CHEMISTRY METHOD 01/18/2025 1:25 PM EDT [facility] Anion Gap 7 3 - 11 LAB CHEMISTRY METHOD 01/18/2025 1:25 PM [facility] Glucose 87 70 - 100 mg/dL LAB CHEMISTRY METHOD 01/18/2025 1:25 PM [facility] BUN 13 5 - 25 mg/dL LAB CHEMISTRY METHOD 01/18/2025 1:25 PM [facility] Creatinine 1.21 0.70 - 1.30 mg/dL LAB CHEMISTRY METHOD 01/18/2025 1:25 PM [facility] eGFR 74 >=60 mL/min/1. 73m2 LAB CHEMISTRY METHOD 01/18/2025 1:25 PM [facility] Comment:Calculation based on the Chronic Kidney Disease Epidemiology Collaboration (CKD-EPI) equation refit without adjustment for race. BUN/Creatinine Ratio 10.7 LAB CHEMISTRY METHOD 01/18/2025 1:25 PM [facility] Calcium 9.2 8.5 - 10.5 mg/dL LAB CHEMISTRY METHOD 01/18/2025 1:25 PM [facility] AST (SGOT) 23 10 - 42 unit/L LAB CHEMISTRY METHOD 01/18/2025 1:25 PM [facility] ALT (SGPT) 42 10 - 60 unit/L LAB CHEMISTRY METHOD 01/18/2025 1:25 PM [facility] Alkaline Phosphatase 129(H) 42 - 121 unit/L LAB CHEMISTRY METHOD 01/18/2025 1:25 PM [facility] Total Protein 7.0 6.0 - 8.0 g/dL LAB CHEMISTRY METHOD 01/18/2025 1:25 PM [facility] Albumin 3.8 3.2 - 5.0 g/dL LAB CHEMISTRY METHOD 01/18/2025 1:25 PM [facility] Total Bilirubin 0.3 0.0 - 1.4 mg/dL LAB CHEMISTRY METHOD 01/18/2025 1:25 PM [facility] Blood Venous blood specimen / Unknown Venipuncture / Unknown 01/18/2025 9:37 AM EDT 01/18/2025 9:37 AM EDT us Calin Krause MD LAB BLOOD ORDERABLES Final Result [facility] ([facility] [address] [place] [address], [place] [phone] * US Head Neck Soft Tissue (12/29/2024 8:14 AM EDT) Anatomical Region Laterality Modality Head and Neck Ultrasound 12/29/2024 11:4 0 AM EDT Narrative 12/29/2024 11:42 AM EDT Thyroid ultrasound. History? Cord. Right thyroid lobe is enlarged measuring 6.6 x 2.4 x 2.7 cm with a volume of 22.4 cc. It revealed normal flow on color Doppler examination. There is a 0.7 x 0.5 x 0.7 cm mixed echogenicity circumscribed nodule in the midpole medially. There is mostly circumscribed nodule in the lower pole laterally measuring 1 x 0.8 x 0.7 cm. There is additional heavily calcified nodule in the lower pole medially measuring 0.6 x 0.5 x 0.6 cm. Left thyroid lobe was visualized measuring 6 x 2.1 x 2.4 cm with a volume of 15.8 cc. There is a circumscribed heterogeneous in echotexture of mildly hypoechoic nodule in the lower pole measuring 1.3 x 0.6 x 1.1 cm. CONCLUSIONS: Enlarged thyroid gland with bilateral thyroid nodules as detailed. -------- FINAL REPORT -------- Dictated By: Socorro Nazario Dictated Date: 12/29/2024 11:40 ET Assigned Physician: Socorro Nazario Reviewed and Electronically Signed By: Socorro Nazario Signed Date: 12/29/2024 11:42 ET Workstation ID: [id number] Transcribed By: Self Edit Transcribed Date: 12/29/2024 11:40 ET Procedure Note oScorro Nazario MD - 12/29/2024 Thyroid ultrasound. History? Cord. Right thyroid lobe is enlarged measuring 6.6 x 2.4 x 2.7 cm with a volumeof 22.4 cc. It revealed normal flow on color Doppler examination. There ken 0.7 x 0.5 x 0.7 cm mixed echogenicity circumscribed nodule in themidpole medially. There is mostly circumscribed nodule in the lower polelaterally measuring 1 x 0.8 x 0.7 cm. There is additional heavilycalcified nodule in the lower pole medially measuring 0.6 x 0.5 x 0.6cm. Left thyroid lobe was visualized measuring 6 x 2.1 x 2.4 cm with a volumeof 15.8 cc. There is a circumscribed heterogeneous in echotexture ofmildly hypoechoic nodule in the lower pole measuring 1.3 x 0.6 x 1.1 cm. CONCLUSIONS: Enlarged thyroid gland with bilateral thyroid nodules asdetailed. -------- FINAL REPORT -------- Dictated By: Socorro Nazario Dictated Date: 12/29/2024 11:40 ET Assigned Physician: Socorro Nazario Reviewed and Electronically Signed By: Socorro Nazario Signed Date: 12/29/2024 11:42 ET Workstation ID: [id number] Transcribed By: Self Edit Transcribed Date: 12/29/2024 11:40 ET us Calin Krause MD IMG US PROCEDURES Final Res ult from Last 3 Months Insurance MEDICA[place] - [place] [employer] MEDICARE Care Teams Home Health Scheduler Relationship Specialty Start Date End Date Calin Krause MD [address] [place] [address] PCP - General Internal Medicine 10/23/21
== END 2025-02-15 18:01 | disposition home or self-care (01) ==
LOC: HO.MRI 18:00
PROVIDERS: PCP Internal Medicine; Visit Provider Nurse Practitioner Family
DX: M48.061 Spinal stenosis, lumbar region without neurogenic claudication (principal); M54.16 Radiculopathy, lumbar region; M51.369 Other intervertebral disc degeneration, lumbar region without mention of lumbar back pain or lower extremity pain; M47.817 Spondylosis without myelopathy or radiculopathy, lumbosacral region
CPT/HCPCS: 72148

== ENCOUNTER 2025-02-22 12:50 | Outpatient (AMB) | payer MEDICARE, MEDICAID, SELFPAY ==
[2025-02-22 12:59] VITALS: BMI 28.5
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
== END 2025-02-22 13:39 | disposition home or self-care (01) ==
LOC: HO.HNS 12:51
PROVIDERS: PCP Internal Medicine; Referring Provider Nurse Practitioner Family; Visit Provider Physician Assistant
DX: M54.16 Radiculopathy, lumbar region (principal)
CPT/HCPCS: 99204

== ENCOUNTER → 2025-02-22 12:50 | Outpatient (BNVA) | payer MEDICARE, MEDICAID, SELFPAY | PROVIDERS: PCP Internal Medicine; Referring Provider Nurse Practitioner Family; Visit Provider Physician Assistant | DX: M54.16 Radiculopathy, lumbar region (principal) | CPT/HCPCS: 99202 ==

== ENCOUNTER 2025-05-10 11:02 | Outpatient (AMB) | payer MEDICARE, MEDICAID, SELFPAY ==
--- OUTSIDE RECORDS SUMMARY | 2025-05-10 11:09 | XMS_ITS | Encounter Summary ---
Author Organization [facility] Address [address] [place] [address] Care Team Providers Care Newspaper Stuffer Name Role Phone Calin Krause MD Primary Care Provider [phone] Encounter Details Date Type Department Care Team (Late Contact Info) Description 03/30/2025 Results Follow-Up [facility] Hematology Oncology [address] [place] [phone] Socorro Chambers PA [address] [place] [address] Social History Tobacco Use Types Packs/Day Years [...] on file documented as of this encounter Plan of Treatment Upcoming Encounters Date Type Department Care Team (Late Contact Info) Description 02/09/2026 3:00 PM EDT Office Visit Endocrinology - [place] [address] [place], [place] [phone] Rosanne Maxwell PA [address] [place] [address] documented as of this encounter Visit Diagnoses Not on filedocumented in this encounter Care Teams Newspaper Stuffer Relationship Specialty Start Date End Date Calin Krause MD [address] [place] [address] PCP - General Internal Medicine 10/23/21 documented as of this encounter
--- OUTSIDE RECORDS SUMMARY | 2025-05-10 11:09 | XMS_ITS | Clinical Summary ---
Author Organization [facility] [address] [place] [address] [place] [phone] Phone Care Team Providers Care Memorial Counselor Name Role Phone Calin Krause MD Primary Care Provider Allergies No known active allergies Medications albuterol HFA (PROAIR HFA ; PROVENTIL HFA ; VENTOLIN HFA) 90 mcg/actuation inhaler Active acetaminophen (TYLENOL 8 HOUR) 650 mg 8 hr tablet Take 1 tablet (650 mg total) by mouth every 8 (eight) hours if needed. 3 Active cyclobenzaprine (FLEXERIL) 10 mg tablet Take 1 tablet (10 mg total) by mouth at bedtime as needed for muscle spasms. 30 tablet 3 5 Active atorvastatin (LIPITOR) 20 mg tablet Take 1 tablet (20 mg total) by mouth 1 (one) time each day. 90 each 1 5 Active gabapentin (NEURONTIN) 300 mg capsule Take 1 capsule (300 mg total) by mouth 2 (two) times a day. 5 Active ibuprofen (ADVIL,MOTRIN) 400 mg tablet Take 1 tablet (400 mg total) by mouth every 8 (eight) hours if needed. 5 Active lidocaine (LIDODERM) 5 % patch Apply 1 patch topically 1 (one) time each day. 5 Active betamethasone dipropionate (DIPROSONE) 0.05 % cream Apply topically 2 (two) times a day. 45 g 5 03/28/20 26 Active Active Problems Problem Noted Date Diagnosed Date Ulcers of both great toes 07/22/2023 Encounters Date Type Department Care Team Description 04/07/2025 11:30 AM EST Treatment Outpatient Rehabilitation [address] [phone] Brian Almeida, PT Acute right-sided low back pain with right-sided sciatica (Primary Dx) 03/31/2025 11:00 AM EST Treatment Outpatient Rehabilitation [address] [phone] Carmen Mejias, MAIN LINE STATION ENGINEER Acute right-sided low back pain with right-sided sciatica (Primary Dx) 03/30/2025 Results Follow-Up [facility] Hematology Oncology [address] [place] [phone] Socorro Chambers PA 03/28/2025 1:45 PM EST Lab Draw Station - [address] [phone] Dermatitis; Leukocytosis, unspecified type 03/28/2025 1:00 PM EST Office Visit [facility] Hematology Oncology [address] [place] [phone] Socorro Chambers PA Leukocytosis, unspecified type (Primary Dx); Dermatitis; Chronic low back pain without sciatica, unspecified back pain laterality 03/23/2025 11:00 AM EST Treatment Outpatient [address] [phone] Carmen Mejias, MAIN LINE STATION ENGINEER Acute right-sided low back pain with right-sided sciatica (Primary Dx) 03/21/2025 10:30 AM EST Treatment Outpatient [address] [phone] Carmen Mejias, MAIN LINE STATION ENGINEER Acute right-sided low back pain with right-sided sciatica (Primary Dx) 03/14/2025 12:30 PM EDT Treatment Outpatient [address] [phone] Brian Almeida, PT Acute right-sided low back pain with right-sided sciatica (Primary Dx) 03/07/2025 11:30 AM EDT Treatment Outpatient [address] [phone] Weidler, Carmen, MAIN LINE STATION ENGINEER Acute right-sided low back pain with right-sided sciatica (Primary Dx) 03/03/2025 11:30 AM EDT Treatment Outpatient [address] [phone] Weidler, Carmen, MAIN LINE STATION ENGINEER Acute right-sided low back pain with right-sided sciatica (Primary Dx) 02/28/2025 11:30 AM EDT Treatment Outpatient [address] [phone] Weidler, Carmen, MAIN LINE STATION ENGINEER Acute right-sided low back pain with right-sided sciatica (Primary Dx) 02/24/2025 11:30 AM EDT Treatment Outpatient [address] [phone] Weidler, Carmen, MAIN LINE STATION ENGINEER Acute right-sided low back pain with right-sided sciatica (Primary Dx) 02/21/2025 11:30 AM EDT Treatment Outpatient [address] [phone] Weidler, Carmen, MAIN LINE STATION ENGINEER Acute right-sided low back pain with right-sided sciatica (Primary Dx) 02/19/2025 Results Follow-Up Adult Medicine [address] [phone] Calin Krause MD 02/10/2025 9:30 AM EDT Evaluation Outpatient [address] [phone] Brian Almeida, PT Acute right-sided low back pain with right-sided sciatica 02/09/2025 4:00 PM EDT Consult Endocrinology [address], [place] [phone] Rosanne Maxwell PA Multiple thyroid nodules (Primary Dx); Subclinical hyperthyroidism from Last 3 Months Immunizations Immunization Administration Dates Next Due Moderna SARS-CoV-2 COVID-19, mRNA, LNP-S, preservative free 01/24/2021,12/27/2020 Td Tetanus diptheria (Tdvax) 7yo and older 11/18 Tdap Tetanus diptheria acell ular pertussis (Boostrix; Adacel) 7yo and older 12/27/2024 Surgical History Surgery Date Site/Laterality Comments KNEE SURGERY Right PROCEDURE: HISTORICAL KNEE SURGERY; COMMENT: in 2016 by Stephane ortho COLONOSCOPY Medical History Medical History Date Comments [...] on file Sexual Orientation Not on file Last Filed Vital Signs Vital Sign Reading Time Taken Comments Blood Pressure 127/81 03/28/2025 1:07 PM EST Pulse 103 03/28/2025 1:07 PM EST Temperature 36.7 C (98 F) 03/28/2025 1:07 PM EST Respiratory Rate 16 12/27/2024 10:12 AM EDT Oxygen Saturation 96% 03/28/2025 1:07 PM EST Inhaled Oxygen Concentration - - Weight 101 kg (223 lb) 03/28/2025 1:07 PM EST Height 182.9 cm (6') 03/28/2025 1:07 PM EST Body Mass Index 30.24 03/28/2025 1:07 PM EST Plan of Treatment Upcoming Encounters Date Type Department Care Team (Late st Contact Info) Description 02/09/2026 3:00 PM EDT Office Visit Endocrinology - [address] [phone] Rosanne Maxwell PA [address] [place] [address] Health Maintenance Due Date Last Done Comments [...] on patient's age to complete this topic Procedures Procedure Name Priority Date/Time Associated Diagnosis Comments CBC WITH AUTO DIFFERENTIAL Routine 03/28/2025 1:44 PM EST Dermatitis Leukocytosis, unspecified type C-REACTIVE PROTEIN Routine 03/28/2025 1: 44 PM EST Dermatitis Leukocytosis, unspecified type CBC AND DIFFERENTIAL Routine 03/28/2025 1:44 PM EST Dermatitis Leukocytosis, unspecified type EXTERNAL MRI REPORT 02/15/2025 EXTERNAL MRI REPORT 02/15/2025 EXTERNAL MRI REPORT 02/15/2025 EXTERNAL MRI REPORT 02/15/2025 THYROID STIMULATING HORMONE WITH REFLEX TO FREE T4 AND FREE T3 Routine 02/09/2025 4:14 PM EDT Subclinical hyperthyroidism THYROID PEROXIDASE AND THYROGLOBULIN ANTIBODIES Routine 02/09/2025 4:14 PM EDT Subclinical hyperthyroidism LIPID PANEL WITH REFLEX TO DIRECT LDL Routine 01/18/2025 9:37 AM EDT Need for lipid screening from Last 3 Months or Most Recently Relevant to Health Maintenance Results * (ABNORMAL) CBC auto differential (03/28/2025 1:44 PM EST) WBC 12.6(H) 4.8 - 10.8 K/mcL LAB HEMETOLOGY METHOD 03/28/2025 4:52 PM EST [facility] RBC 4.60 4.50 - 5.50 M/mcL LAB HEMETOLOGY METHOD 03/28/2025 4:52 PM [facility] Hemoglobin 13.6 13.5 - 17.5 g/dL LAB HEMETOLOGY METHOD 03/28/2025 4:52 PM EST [facility] Hematocrit 41.8(L) 42.0 - 54.0 % LAB HEMETOLOGY METHOD 03/28/2025 4:52 PM EST [facility] MCV 91.5 79.0 - 98.0 FL LAB HEMETOLOGY METHOD 03/28/2025 4:52 PM [facility] MCH 29.8 27.0 - 32.0 pcg LAB HEMETOLOGY METHOD 03/28/2025 4:52 PM [facility] MCHC 32.5 32.0 - 37.0 g/dL LAB HEMETOLOGY METHOD 03/28/2025 4:52 PM [facility] RDW 15.9(H) 11.0 - 15.0 % LAB HEMETOLOGY METHOD 03/28/2025 4:52 PM [facility] Platelets 323 130 - 400 K/mcL LAB HEMETOLOGY METHOD 03/28/2025 4:52 PM [facility] MPV 9.8 7.0 - 11.0 FL LAB HEMETOLOGY METHOD 03/28/2025 4:52 PM [facility] NRBC 0.0 <1.0 % LAB HEMETOLOGY METHOD 03/28/2025 4:52 PM [facility] NRBC Absolute 0.00 <0.10 K/mcL LAB HEMETOLOGY METHOD 03/28/2025 4:52 PM [facility] Neutrophils Relative 67.0 % LAB HEMETOLOGY METHOD 03/28/2025 4:52 PM [facility] Lymphocytes Relative 21.6 % LAB HEMETOLOGY METHOD 03/28/2025 4:52 PM [facility] Monocytes Relative 7.0 % LAB HEMETOLOGY METHOD 03/28/2025 4:52 PM [facility] Eosinophils Relative 2.8 % LAB HEMETOLOGY METHOD 03/28/2025 4:52 PM [facility] Basophils Relative 0.6 % LAB HEMETOLOGY METHOD 03/28/2025 4:52 PM [facility] Immature Granulocytes Relative 1.0 % LAB HEMETOLOGY METHOD 03/28/2025 4:52 PM [facility] Neutrophils Absolute 8.46(H) 1.50 - 7.00 K/mcL LAB HEMETOLOGY METHOD 03/28/2025 4:52 PM [facility] Lymphocytes Absolute 2.73 1.00 - 5.00 K/mcL LAB HEMETOLOGY METHOD 03/28/2025 4:52 PM EST [facility] Monocytes Absolute 0.88 0.20 - 1.00 K/[facility] LAB HEMETOLOGY METHOD 03/28/2025 4:52 PM EST [facility] Eosinophils Absolute 0.35 0.00 - 0.50 K/[facility] LAB HEMETOLOGY METHOD 03/28/2025 4:52 PM EST [facility] Basophils Absolute 0.08 0.00 - 0.20 K/[facility] LAB HEMETOLOGY METHOD 03/28/2025 4:52 PM EST [facility] Immature Granulocytes Absolute 0.13(H) 0.00 - 0.03 K/[facility] LAB HEMETOLOGY METHOD 03/28/2025 4:52 PM EST [facility] Blood Venous blood specimen / Unknown Venipuncture / Unknown 03/28/2025 1:44 PM EST 03/28/2025 4:36 PM EST us Socorro WALLIS LAB BLOOD ORDERABLES Final Re sult Performing Organization Address City/[facility]/ZIP Co de Phone Number [facility] [address] [place] [address], * C-reactive protein (03/28/2025 1:44 PM EST) C-Reactive Protein <0.29 <=0.50 mg/dL LAB CHEMISTRY METHOD 03/28/2025 5:17 PM EST [facility] Blood Venous blood specimen / Unknown Venipuncture / Unknown 03/28/2025 1:44 PM EST 03/28/2025 4:35 PM EST us Socorro WALLIS LAB BLOOD ORDERABLES Final Re sult [facility] [address] [place] [address], [place] [phone] * External MRI Report (02/15/2025) Only the most recent of4 resultswithin the time period is included. Anatomical Region Laterality Modality Magnetic Resonan ce us Provider [facility] MRI PROCEDURES Final Result * Thyroid stimulating hormone with reflex to free t4 and free t3 (02/09/2025 4:14 PM EDT) Pathologist [facility] TSH 0.77 0.40 - 4.00 mcIU/mL LAB CHEMISTRY METHOD 02/09/2025 7:10 PM EDT [facility] Blood Venous blood specimen / Unknown Venipuncture / Unknown 02/09/2025 4:14 PM EDT 02/09/2025 4:14 PM EDT Rosanne WALLIS LAB BLOOD ORDERABLES Final Result [facility] [address] [place] [address], [place] [phone] * Thyroid peroxidase and thyroglobulin antibodies (02/09/2025 4:14 PM EDT) Pathologist [facility] Antithyroglobulin Ab <15.0 <=60.0 I Unit/mL LAB CHEMISTRY METHOD 02/09/2025 7:33 PM EDT [facility] Thyroid Peroxidase Ab 43.0 <=60.0 I Unit/mL LAB CHEMISTRY METHOD 02/09/2025 7:33 PM EDT [facility] Blood Venous blood specimen / Unknown Venipuncture / Unknown 02/09/2025 4:14 PM EDT 02/09/2025 4:14 PM EDT Rosanne WALLIS LAB BLOOD ORDERABLES Final Result [facility] [address] [place] [address], [place] [phone] * (ABNORMAL) Lipid panel with reflex to direct LDL (01/18/2025 9:37 AM EDT) Cholesterol 255(H) 0 - 200 mg/dL LAB CHEMISTRY METHOD 01/18/2025 1:25 PM EDT [facility] Triglycerides 59 0 - 150 mg/dL LAB CHEMISTRY METHOD 01/18/2025 1:25 PM EDT [facility] HDL 63 >=40 mg/dL LAB CHEMISTRY METHOD 01/18/2025 1:25 PM EDT [facility] LDL Calculated 180(H) 0 - 100 mg/dL LAB CHEMISTRY METHOD 01/18/2025 1:25 PM EDT [facility] Comment:Estimated LDL Calcul ated using equation: Total cholesterol - HDL cholesterol - (Triglycerides/5) VLDL Cholesterol Aayush 11.8 mg/dL LAB CHEMISTRY METHOD 01/18/2025 1:25 PM EDT [facility] Non HDL Chol. (LDL+VLDL) 192(H) <145 mg/dL LAB CHEMISTRY METHOD 01/18/2025 1:25 PM EDT [facility] Chol/HDL Ratio 4.0 0.0 - 4.4 LAB CHEMISTRY METHOD 01/18/2025 1:25 PM EDT [facility] Blood Venous blood specimen / Unknown Venipuncture / Unknown 01/18/2025 9:37 AM EDT 01/18/2025 9:37 AM EDT us Calin Krause MD LAB BLOOD ORDERABLES Final Result [facility] [address] [place] [address], [place] [phone] from Last 3 Months or Most Recently Relevant to Health Maintenance Insurance MEDICAID - [place] [employer] MEDICARE Care Teams Memorial Counselor Relationship Specialty Start Date End Date Calin Krause MD [address] [place] [address] PCP - General Internal Medicine 10/23/21
--- NOTE | 2025-05-10 11:14 | A.SPINEOV_ITS ---
Intake Visit Reasons: follow up after PT Intake Note: Mr. Jennings is here today for a F/u after Pain Management. Group Work Program Aide Required: No Allergies No Known Allergies Allergy (Verified 05/10/25 11:15) Assessment & Plan Assessment & Plan (1) Lumbar radiculopathy: Code(s): M54.16 - Radiculopathy, lumbar region Category: Medical Plan Pop is a pleasant 49 year old male who comes in today for subsequent evaluation of back pain and shooting pain into his right lower extremity, which began abruptly around the beginning of January. To recap he had previously experienced a similar situation/severity of pain over 1 year ago which self resolved after a course of PT. In the absence of numbness/weakness or other indicators of severe nerve compression/damage aside from pain, it was decided via shared decision-making that a course of physical therapy would be best prior to bring him in for surgery. His MRI done on 02/15/25 shows a large disc herniation at L3-4, and a smaller disc herniation at L4-5. He comes in today after completing a full course of physical therapy. He states that unfortunately this time around physical therapy was not particularly helpful for him was not effective at resolving his pain. He wishes to discuss surgery. We again reviewed his current condition, and I extensively explained a right-sided L3-4 minimally invasive microdiskectomy. He wishes to proceed with surgery. I did also discuss with him that he has a smaller disc herniation at L4-5, and therefore I would like to review his images with Dr. Gallagher to make sure he would not like to address this is well during his surgery. I would also like to discuss the possibility of having him moved up sooner on our surgical schedule vs. 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 He denies any significant pulmonary history other than asthma. He denies any significant cardiac history of bleeding disorders. He denies any significant history of infection / MRSA. We extensively discussed the proposed procedure utilizing our spine models and sample instrumentation. The patient was provided with both in person and digital perioperative education, including but not limited to; perioperative course, home environment / postoperative safety, methods for managing pain, VTE prevention, expected LOS, discharge expectations, safe mobility, postoperative lifestyle changes, and DME. The bulk of this is covered in our patient education videos, which the patient was povided a QR code card to access PRN. We also discussed risks and benefits of surgery including but not limited to infection, hematoma, nerve injury, durotomy, weakness, bowel/bladder injury, persistent pain. We also discussed the option to continue with conservative treatment and patient wishes to proceed with surgery. They are aware they should stop NSAIDs 7 days prior to surgery. All questions were answered to the best of our ability. If there is anything about this patients medical history that we have overlooked or concerns you have about us proceeding with surgery we would appreciate any input you can offer. Vishal Gallagher MD,PhD [facility] Coding Level of Care Code Est Pt Level 3 (45742) Diagnoses Lumbar radiculopathy M54.16
== END 2025-05-10 11:41 | disposition home or self-care (01) ==
LOC: HO.HNS 11:02
PROVIDERS: PCP Internal Medicine; Visit Provider Physician Assistant
DX: M54.16 Radiculopathy, lumbar region (principal)
CPT/HCPCS: 99213

== ENCOUNTER → 2025-05-10 11:02 | Outpatient (BNVA) | payer MEDICARE, MEDICAID, SELFPAY | PROVIDERS: PCP Internal Medicine; Visit Provider Physician Assistant | DX: M54.16 Radiculopathy, lumbar region (principal) | CPT/HCPCS: 99212 ==